=== PATIENT | female | born 1990 | race Caucasian/White ===

== ENCOUNTER 2020-05-28 14:16 | Outpatient (REF) | payer OTHER, SELFPAY | END 2020-05-28 14:17 | disposition home or self-care (01) | LOC: HO.LNP 14:16 | PROVIDERS: Visit Provider Internal Medicine | DX: Z20.828 Contact with and (suspected) exposure to other viral communicable diseases (principal) | CPT/HCPCS: U0003 ==

== ENCOUNTER 2021-06-23 14:50 | Outpatient (REF) | payer OTHER, SELFPAY ==
[2021-06-23 15:32] LABS: Influenza A PCR NEGATIVE (Negative); Influenza B PCR NEGATIVE (Negative); Resp Syncy Virus RNA Qual PCR NEGATIVE (Negative); SARS COV2 PCR INHOUSE POSITIVE (Negative)
== END 2021-06-23 14:51 | disposition home or self-care (01) ==
LOC: HO.LNP 14:50
PROVIDERS: Visit Provider Internal Medicine
DX: Z20.822 Contact with and (suspected) exposure to COVID-19 (principal)
CPT/HCPCS: 0241U

== ENCOUNTER 2022-10-14 15:54 | Outpatient (REF) | payer OTHER, SELFPAY ==
[2022-10-14 16:09] LABS: MANUAL DIFF FLAG NO
[2022-10-14 17:22] LABS: Basophils Absolute Auto 0.1 X10*3/uL (0.0-0.2); Basophils Percent Auto 1.5 % (0-2); Eosinophils Absolute Auto 0.9 X10*3/uL (0.0-0.4); Hematocrit 43.7 % (37.0-47.0); Hemoglobin 14.1 g/dl (12.0-16.0); Imm Gran Abs Auto 0.01 X10*3/uL (0.00-0.03); Imm Gran Pct Auto 0.2 % (0.0-0.4); Lymphocytes Percent Auto 33.7 % (20-40); Mean Corpuscular HGB Conc 32.3 g/dl (31.0-35.0); Mean Corpuscular Hemoglobin 29.1 pg (27.0-33.0); Mean Corpuscular Volume 90.1 fL (80.0-98.0); Mean Platelet Volume 10.4 fL (9.4-12.3); Monocytes Absolute Auto 0.6 X10*3/uL (0.1-1.2); Monocytes Percent Auto 10.7 % (2-11); Neutrophils Absolute Auto 2.2 x10*3/uL (2.0-8.3); Neutrophils Percent Auto 37.9 % (45-73); Platelet Count 303 X10*3/uL (160-400); Red Blood Count 4.85 X10*6/uL (4.20-5.50); Red Cell Distribution Width 13.6 % (11.0-16.0); White Blood Count 5.8 X10*3/uL (4.8-10.8)
[2022-10-14 18:02] LABS: Alanine Aminotransferase 19 U/L (0-31); Albumin Level 4.1 g/dL (3.5-5.0); Alkaline Phosphatase 66 U/L (39-117); Anion Gap 12 (12-20); Aspartate Amino Transferase 19 U/L (5-31); Bilirubin Total 0.6 mg/dL (0.0-1.0); Blood Urea Nitrogen 7 mg/dL (9-16); C Reactive Protein 0.19 mg/dL (< or = 0.50); Calcium 9.3 mg/dL (8.4-10.2); Carbon Dioxide 28 mmol/L (22-29); Chloride 106 mmol/L (96-108); Estimated Glomerular Filt Rate > 60; Glucose Random 88 mg/dL (60-115); Potassium 4.6 mmol/L (3.3-5.1); Sodium 141 mmol/L (135-145); Total Protein 6.7 g/dL (6.5-8.0)
[2022-10-14 18:03] LABS: Erythrocyte Sedimentation Rate 2 MM/HR (0-20)
[2022-10-14 18:11] LABS: D Dimer High Sensitivity < 150 NG/ML
== END 2022-10-14 15:55 | disposition home or self-care (01) ==
LOC: HO.LAB 15:54
PROVIDERS: PCP Internal Medicine; Visit Provider Internal Medicine
DX: R06.02 Shortness of breath (principal); Z86.16 Personal history of COVID-19
CPT/HCPCS: 36415; 80053; 85025; 85379; 85652; 86140

== ENCOUNTER 2024-08-29 17:51 | Emergency (ER) | payer OTHER, SELFPAY ==
--- NOTE | ~2024-08-29 | XR_ITS ---
CLINICAL HISTORY: Cough 1 view chest x-ray Comparison: None Findings: The lungs are clear. Heart size is normal. No acute fracture. IMPRESSION: 1. No acute findings. This document has been electronically signed by: Mio Mcbride MD on 08/29/2024 18:58:44
--- NOTE | 2024-08-29 17:57 | ED_ITS ---
HPI - SOB/Dyspnea General Chief Complaint: Dyspnea Stated Complaint: SOB, CHEST TIGHTNESS Time Seen by Provider: 08/29/24 17:57 Source: patient Mode of arrival: ambulatory Limitations: no limitations History of Present Illness ED Provider: HPI Narrative: Patient's history of mild asthma for last 4 days been having URI symptoms nasal congestion cough getting worse has low-grade fever mucopurulent phlegm EMS gave her DuoNeb treatment feeling much better but still coughing a lot Related Data Previous Rx's ?Medication ?Instructions ?Recorded albuterol sulfate 90 mcg/actuation 2 puff inhalation Q6H PRN 08/29/24 aerosol inhaler shortness of breath or wheezing #8.5 grams codeine 10 mg-guaifenesin 100 mg/5 10 ml PO Q6H PRN cough #237 mL 08/29/24 mL oral liquid prednisone 20 mg tablet 40 mg (2 x 20 mg) PO DAILY #10 tabs 08/29/24 Allergies Allergy/AdvReac Type Severity Reaction Status Date / Time No Known Allergies Allergy Unverified 08/29/24 18:10 Review of Systems 2 Review of Systems: Yes all other systems are reviewed and are negative ON LICENSE OF [facility] Social History Social History Advance Directives: No Advance Directives Information Provided: No Do you have a plan to hurt others: No Plan Physical Exam 2 Vital Signs: Vital Signs: Last Vital Signs Temp 98.9 F 08/29/24 19:49 Pulse 99 08/29/24 19:49 Resp 20 08/29/24 19:49 BP 133/84 08/29/24 19:49 Pulse Ox 93 08/29/24 19:49 O2 Del Method Room Air 08/29/24 19:49 BMI result Body Mass Index 25.0 Appearance: Alert. Oriented X3. No acute distress. Eyes: No pallor or icterus ENT: Pharynx normal. Oral Mucosa moist Neck: Normal inspection. Neck supple. CVS: Normal heart rate and rhythm. Pulses normal. Respiratory: No respiratory distress. Equal air entry bilateral, bilateral wheezing with frequent cough Abdomen: Soft and nontender. Bowel sounds are present, no mass palpable, no CVA tenderness Skin: Skin warm and dry. Normal skin color. Normal skin turgor. Extremities: No lower extremity edema. No calf tenderness Neuro: Oriented X 3. No motor deficit. Medications Administered Discontinued Medications Generic Name Dose Route Start Last Admin Trade Name [place] PRN Reason Stop Dose Admin Albuterol Sulfate 5 mg 08/29/24 17:59 08/29/24 18:25 Albuterol Sulfate (0.083%) 2.5 Mg/3 Ml Vial.Neb INHALE 08/29/24 18:00 5 mg ONCE ONE Administration Guaifenesin/Codeine Phosphate 10 ml 08/29/24 18:00 08/29/24 19:36 Guaifen/Codeine Sf 200/20/10ml 10 Ml Liquid PO 08/29/24 18:01 10 ml ONCE ONE Administration Methylprednisolone Sodium Succinate 125 mg 08/29/24 19:28 08/29/24 19:36 Methylprednisolone Sod Succ 125 Mg/2 Ml Vial IVPUSH 08/29/24 19:29 125 mg ONCE ONE Administration Medical Decision Making Medical Decision Making [facility] Narrative: Patient with influenza A and asthma discharge patient home on supportive early been sick for last 3 days Lab Data [facility] Lab Attestation statement: I reviewed the patient's lab results. 08/29/24 18:22 08/29/24 18:22 Labs: Lab Results 08/29/24 Range/Units 18:22 WBC 3.4 L (4.8-10.8) X10*3/uL RBC 4.37 (4.20-5.50) X10*6/uL Hgb 13.0 (12.0-16.0) g/dl Hct 38.3 (37.0-47.0) % MCV 87.6 (80.0-98.0) fL MCH 29.7 (27.0-33.0) pg MCHC 33.9 (31.0-35.0) g/dl RDW 13.0 (11.0-16.0) % Plt Count 217 D (160-400) X10*3/uL MPV 9.8 (9.4-12.3) fL Immature Gran % (Auto) 0.3 (0.0-0.4) % Neut % (Auto) 61.7 (45-73) % Lymph % (Auto) 20.6 (20-40) % [place] % (Auto) 15.6 H (2-11) % Eos % (Auto) 1.2 (0-4) % Baso % (Auto) 0.6 (0-2) % Lymph # (Auto) 0.7 L (1.2-4.9) X10*3/uL [place] # (Auto) 0.5 (0.1-1.2) X10*3/uL Eos # (Auto) 0.0 (0.0-0.4) X10*3/uL Baso # (Auto) 0.0 (0.0-0.2) X10*3/uL Abs Immat Gran (auto) 0.01 (0.00-0.03) X10*3/uL Absolute Neuts (auto) 2.1 (2.0-8.3) x10*3/uL Absolute Nucleated RBC 0.000 (0.0-0.012) X10*3/uL Nucleated RBC % (auto) 0.0 (0.0-0.2) /100WBC Sodium 141 (135-145) mmol/L Potassium 3.6 (3.3-5.1) mmol/L Chloride 103 (96-108) mmol/L Carbon Dioxide 23 (22-29) mmol/L Anion Gap 19 (12-20) BUN 5 L (9-16) mg/dL Creatinine 0.66 (0.5-1.4) mg/dL Estim Creat Clear Calc 106.0 Estimated GFR > 60 Random Glucose 88 (60-115) mg/dL Calcium 7.9 L D (8.4-10.2) mg/dL Influenza Type A (PCR) POSITIVE A (Negative) Influenza Type B (PCR) NEGATIVE (Negative) RSV RNA Qual (PCR) NEGATIVE (Negative) SARS-CoV-2 RNA (RT-PCR) NEGATIVE (Negative) Discharge Plan Discharge Clinical Impression: Influenza A, Asthma with exacerbation Patient Disposition: Home, Self-Care Instructions: Asthma (ED), Influenza (ED) Additional Instructions: Drink plenty of fluids Cough syrup and prednisone as prescribed Use inhaler every 4 hours as needed Report to the ER if increased shortness of breath Prescriptions: New codeine-guaifenesin 10-100 mg/5 mL liquid 10 ml PO Q6H PRN (Reason: cough) Qty: 237 0RF albuterol sulfate 90 mcg/actuation HFA aerosol inhaler 2 puff inhalation Q6H PRN (Reason: shortness of breath or wheezing) Qty: 8.5 0RF prednisone 20 mg tablet 40 mg PO DAILY Qty: 10 0RF Interventions: ED Discharge Assessment Last Done: 08/29/24 19:49 Discharge Date/Time: 08/29/24 20:08 Print Language: Moldovan
[2024-08-29 18:07] VITALS: BP 117/63; BP 132/58; PULSE 90; PULSE 96; RESP 18; TEMP 37.6; O2SAT 94; O2SAT 95; BMI 25.0
[2024-08-29] MEDS: Albuterol Sulfate (0.083%) 2.5 MG/3 ML VIAL.NEB 5 MG INHALE (18:25)
[2024-08-29 18:26] LABS: MANUAL DIFF FLAG NO
[2024-08-29 18:32] VITALS: PULSE 60; RESP 18; O2SAT 98
[2024-08-29 18:32] LABS: Basophils Percent Auto 0.6 % (0-2); Eosinophils Percent Auto 1.2 % (0-4); Hematocrit 38.3 % (37.0-47.0); Imm Gran Abs Auto 0.01 X10*3/uL (0.00-0.03); Imm Gran Pct Auto 0.3 % (0.0-0.4); Lymphocytes Absolute Auto 0.7 X10*3/uL (1.2-4.9); Lymphocytes Percent Auto 20.6 % (20-40); Mean Corpuscular HGB Conc 33.9 g/dl (31.0-35.0); Mean Corpuscular Hemoglobin 29.7 pg (27.0-33.0); Mean Corpuscular Volume 87.6 fL (80.0-98.0); Mean Platelet Volume 9.8 fL (9.4-12.3); Monocytes Absolute Auto 0.5 X10*3/uL (0.1-1.2); Monocytes Percent Auto 15.6 % (2-11); Neutrophils Absolute Auto 2.1 x10*3/uL (2.0-8.3); Neutrophils Percent Auto 61.7 % (45-73); Platelet Count 217 X10*3/uL (160-400); Red Blood Count 4.37 X10*6/uL (4.20-5.50); White Blood Count 3.4 X10*3/uL (4.8-10.8)
[2024-08-29 18:42] LABS: Anion Gap 19 (12-20); Blood Urea Nitrogen 5 mg/dL (9-16); Calcium 7.9 mg/dL (8.4-10.2); Carbon Dioxide 23 mmol/L (22-29); Chloride 103 mmol/L (96-108); Estimated Glomerular Filt Rate > 60; Glucose Random 88 mg/dL (60-115); Potassium 3.6 mmol/L (3.3-5.1); Sodium 141 mmol/L (135-145)
[2024-08-29 19:05] LABS: Influenza A PCR POSITIVE (Negative); Influenza B PCR NEGATIVE (Negative); Resp Syncy Virus RNA Qual PCR NEGATIVE (Negative); SARS COV2 PCR INHOUSE NEGATIVE (Negative)
[2024-08-29] MEDS: guaiFEN/Codeine SF 200/20/10ML 10 ML LIQUID PO (19:36)
[2024-08-29] MEDS: methylPREDNISolone Sod Succ 125 MG/2 ML VIAL IVPUSH (19:36)
[2024-08-29 19:49] VITALS: BP 133/84; PULSE 99; RESP 20; TEMP 37.2; O2SAT 93
== END 2024-08-29 20:08 | disposition home or self-care (01) ==
PROVIDERS: Emergency Provider Internal Medicine; PCP Internal Medicine
DX: J10.1 Influenza due to other identified influenza virus with other respiratory manifestations (principal); J45.901 Unspecified asthma with (acute) exacerbation; R06.02 Shortness of breath; R07.89 Other chest pain; R05.9 Cough, unspecified; Z03.818 Encounter for observation for suspected exposure to other biological agents ruled out; Z79.899 Other long term (current) drug therapy
CPT/HCPCS: 0241U; 36415; 71045; 80048; 85025; 94640; 96374; 99283; 99284; J2919

== ENCOUNTER → 2024-08-29 17:59 | Outpatient (BNV) | payer OTHER, SELFPAY | PROVIDERS: Emergency Provider Internal Medicine; PCP Internal Medicine; Visit Provider Radiology Diagnostic Radiology | DX: R05.9 Cough, unspecified (principal) | CPT/HCPCS: 71045 ==

== ENCOUNTER 2024-12-06 00:30 | Emergency (ER) | payer OTHER, SELFPAY ==
--- NOTE | 2024-12-06 | ECG_ITS ---
Test Reason : SOB,CP Blood Pressure : */* mmHG Vent. Rate : 81 BPM Atrial Rate : 81 BPM P-R Int : 156 ms QRS Dur : 84 ms QT Int : 388 ms P-R-T Axes : 84 79 68 degrees QTcB Int : 450 ms Normal sinus rhythm Biatrial enlargement Abnormal ECG No previous ECGs available Referred By: Generic ED Physician Electronically Signed By: MALCOM WHEELER MD
--- NOTE | ~2024-12-06 | XR_ITS ---
CLINICAL HISTORY: sob 1 view chest x-ray Comparison: Chest x-ray from 08/29/2024 Findings: No consolidation, pneumothorax, or pleural effusion. Imaged mediastinum and imaged osseous structures are unchanged. IMPRESSION: No consolidation. This document has been electronically signed by: Jewel Hay MD on 12/06/2024 02:10:47
[2024-12-06 00:48] VITALS: BP 128/74; PULSE 85; RESP 22; TEMP 36.8; O2SAT 92; BMI 25.3
[2024-12-06 00:49] LABS: Basophils Absolute Auto 0.1 X10*3/uL (0.0-0.2); Basophils Percent Auto 1.5 % (0-2); Eosinophils Absolute Auto 0.8 X10*3/uL (0.0-0.4); Eosinophils Percent Auto 9.5 % (0-4); Imm Gran Abs Auto 0.02 X10*3/uL (0.00-0.03); Imm Gran Pct Auto 0.2 % (0.0-0.4); Lymphocytes Absolute Auto 3.6 X10*3/uL (1.2-4.9); Lymphocytes Percent Auto 43.4 % (20-40); MANUAL DIFF FLAG NO; Mean Corpuscular HGB Conc 33.3 g/dl (31.0-35.0); Mean Corpuscular Hemoglobin 29.7 pg (27.0-33.0); Mean Platelet Volume 9.9 fL (9.4-12.3); Monocytes Absolute Auto 0.7 X10*3/uL (0.1-1.2); Monocytes Percent Auto 8.6 % (2-11); Neutrophils Percent Auto 36.8 % (45-73); Platelet Count 272 X10*3/uL (160-400); Red Blood Count 4.72 X10*6/uL (4.20-5.50); Red Cell Distribution Width 13.3 % (11.0-16.0); White Blood Count 8.2 X10*3/uL (4.8-10.8)
[2024-12-06 00:58] VITALS: O2SAT 95
[2024-12-06 01:09] LABS: Troponin-I High Sensitivity < 2.7 ng/L (<3.5-17.0)
[2024-12-06 01:11] LABS: Alanine Aminotransferase 17 U/L (0-31); Albumin Level 4.1 g/dL (3.5-5.0); Alkaline Phosphatase 69 U/L (39-117); Anion Gap 12 (12-20); Aspartate Amino Transferase 20 U/L (5-31); Bilirubin Total 0.2 mg/dL (0.0-1.0); Blood Urea Nitrogen 17 mg/dL (9-16); Calcium 8.9 mg/dL (8.4-10.2); Carbon Dioxide 24 mmol/L (22-29); Chloride 107 mmol/L (96-108); Creatinine Clr Calc Pharmacy 105.3; Estimated Glomerular Filt Rate > 60; Glucose Random 82 mg/dL (60-115); Potassium 4.2 mmol/L (3.3-5.1); Sodium 139 mmol/L (135-145); Total Protein 6.8 g/dL (6.5-8.0)
[2024-12-06 01:14] VITALS: PULSE 79; RESP 18; O2SAT 95
[2024-12-06] MEDS: Albuterol/Iprat 2.5/0.5MG 3 ML AMPUL.NEB INHALE (01:19)
[2024-12-06 02:25] VITALS: BP 96/58; PULSE 74; RESP 16; TEMP 37.1; O2SAT 96
--- NOTE | 2024-12-06 03:22 | ED_ITS ---
HPI - Chest Pain General Chief Complaint: Chest Pain Stated Complaint: SOB, chest pain Time Seen by Provider: 12/06/24 03:06 Source: patient Mode of arrival: ambulatory Limitations: no limitations History of Present Illness ED Provider: DR. Rothman HPI narrative: 34-year-old female history of mild asthma, for the past 2-3 days patient been having tightness of the chest with wheezing patient ran out of bronchodilator treatment at home. Patient admit to smoking cigarettes and marijuana. No sick contacts, no recent travel, no lower extremity swelling or tenderness. Related Data Previous Rx's ?Medication ?Instructions ?Recorded albuterol sulfate 90 mcg/actuation 2 puff inhalation Q6H PRN 08/29/24 aerosol inhaler shortness of breath or wheezing #8.5 grams codeine 10 mg-guaifenesin 100 mg/5 10 ml PO Q6H PRN cough #237 mL 08/29/24 mL oral liquid prednisone 20 mg tablet 40 mg (2 x 20 mg) PO DAILY #10 tabs 08/29/24 albuterol sulfate 2.5 mg/3 mL 2.5 mg (3 mL) inhalation Q4-6H PRN 12/06/24 (0.083 %) solution for nebulization shortness of breath or wheezing #90 mL albuterol sulfate 90 mcg/actuation 2 inh inhalation Q6H PRN shortness 12/06/24 breath activated powder inhaler of breath or wheezing #1 ea prednisone 20 mg tablet 20 mg PO BID #10 tabs 12/06/24 Allergies Allergy/AdvReac Type Severity Reaction Status Date / Time No Known Allergies Allergy Verified 12/06/24 00:50 Review of Systems 2 Review of Systems: All other systems are reviewed and are negative Constitutional: Reports as per HPI and Reports no additional constitutional complaints Eyes: Reports as per HPI and Reports no additional eye complaints Reports system reviewed and no additional complaints, except as documented Cardiovascular: Reports as per HPI and Reports no additional cardiovascular complaints Respiratory: Reports as per HPI and Reports no additional respiratory complaints Gastrointestinal: Reports as per HPI and Reports no additional gastrointestinal complaints Genitourinary: Reports no additional female genitourinary complaints Musculoskeletal: Reports no additional musculoskeletal complaints Skin/Breast: Reports system reviewed and no additional complaints, except as docu Psychiatric: Reports no additional psychiatric complaints Endocrine: Reports no additional endocrine complaints Hematologic/Lymphatic: Reports no additional hematologic/lymphatic complaints Allergic/Immunologic: Reports no additional allergic/immunologic complaints Reports system reviewed and no additional complaints, except as documented and Reports Abnormal speech present [facility] Social History Social History Smoked in Last 30 Days: Yes Use of substances other than those prescribed or required for medical reasons: No Advance Directives: No Advance Directives Information Provided: Yes Do you have a plan to hurt others: No Plan Patient : No Physical Exam 2 Vital Signs: Vital Signs: Last Vital Signs Temp 98.8 F 12/06/24 02:25 Pulse 74 12/06/24 02:25 Resp 16 12/06/24 02:25 BP 96/58 L 12/06/24 02:25 Pulse Ox 96 12/06/24 02:25 O2 Del Method Room Air 12/06/24 02:25 BMI result Body Mass Index 25.3 Vital signs have been reviewed and appear to be correct. Blood pressure elevated. Heart rate normal. Respiratory rate normal. Temperature normal. Oxygen saturation normal. Appearance: Alert. Oriented X3. No acute distress. Head: Normal external exam. Normocephalic. Atraumatic. No Shin signs noted. No raccoon eyes noted Eyes: PERRLA. EOMI. Conjunctiva and sclera normal. Eyelids normal. ENT: TM's Normal. Pharynx normal. Uvula midline. Moist mucous membranes. No trismus noted. No drooling noted. No muffled voice noted. Neck: Normal inspection. Neck supple. FROM. No adenopathy. Thyroid Normal. No meningeal signs. No neck mass noted. CVS: Normal heart rate and rhythm. Heart sound normal. No murmurs noted. Pulses normal throughout. Respiratory: No respiratory distress. Painless inspiration. Breath sounds normal. Diffuse mild expiratory wheezing with prolonged expiration, Chest nontender. No accessory muscle usage noted or decreased air movement noted. Abdomen: Soft and nontender. Bowel sounds normal in all 4 quadrants. No distention noted. No organomegaly noted. No visible injury noted. Back: No CVA tenderness. Full range of motion noted. Skin: Skin warm and dry. Normal skin color. Normal skin turgor. No rashes/lesions/lacerations noted. Extremities: No lower extremity edema. Extremities exhibit normal range of motion. Extremities nontender. Neuro: Oriented X 3. Cranial nerve exam: II-XII are grossly intact No motor deficit. No sensory deficit. Reflexes normal. Course Reevaluation(s) Reevaluation #1: 34-year-old female with acute asthma exacerbation will start the patient on 5 days' course of prednisone, will prescribe bronchodilator. Time: 03:26 Medications Administered Discontinued Medications Generic Name Dose Route Start Last Admin Trade Name Freq PRN Reason Stop Dose Admin Albuterol/Ipratropium 3 ml 12/06/24 01:13 12/06/24 01:19 Albuterol/Iprat 2.5/0.5mg 3 Ml Ampul.Neb INHALE 12/06/24 01:14 3 ml ONCE ONE Administration Medical Decision Making Differential Diagnosis Differential Diagnoses: The differential diagnosis associated with the presentation includes (ACS, pneumonia, pneumothorax, pleural effusion, bronchitis, acute asthma exacerbation.) Admission/Observation Consideration of admission/observation: Escalation of care including admission/observation considered Lab Data MDM Lab Attestation statement: I reviewed the patient's lab results. 12/06/24 00:43 12/06/24 00:43 Labs: Lab Results 12/06/24 Range/Units 00:43 WBC 8.2 (4.8-10.8) X10*3/uL RBC 4.72 (4.20-5.50) X10*6/uL Hgb 14.0 (12.0-16.0) g/dl Hct 42.0 (37.0-47.0) % MCV 89.0 (80.0-98.0) fL MCH 29.7 (27.0-33.0) pg MCHC 33.3 (31.0-35.0) g/dl RDW 13.3 (11.0-16.0) % Plt Count 272 D (160-400) X10*3/uL MPV 9.9 (9.4-12.3) fL Immature Gran % (Auto) 0.2 (0.0-0.4) % Neut % (Auto) 36.8 L (45-73) % Lymph % (Auto) 43.4 H (20-40) % [place] % (Auto) 8.6 (2-11) % Eos % (Auto) 9.5 H (0-4) % Baso % (Auto) 1.5 (0-2) % Lymph # (Auto) 3.6 (1.2-4.9) X10*3/uL [place] # (Auto) 0.7 (0.1-1.2) X10*3/uL Eos # (Auto) 0.8 H (0.0-0.4) X10*3/uL Baso # (Auto) 0.1 (0.0-0.2) X10*3/uL Abs Immat Gran (auto) 0.02 (0.00-0.03) X10*3/uL Absolute Neuts (auto) 3.0 (2.0-8.3) x10*3/uL Absolute Nucleated RBC 0.000 (0.0-0.012) X10*3/uL Nucleated RBC % (auto) 0.0 (0.0-0.2) /100WBC Sodium 139 (135-145) mmol/L Potassium 4.2 (3.3-5.1) mmol/L Chloride 107 (96-108) mmol/L Carbon Dioxide 24 (22-29) mmol/L Anion Gap 12 (12-20) BUN 17 H (9-16) mg/dL Creatinine 0.72 (0.5-1.4) mg/dL Estim Creat Clear Calc 105.3 Estimated GFR > 60 Random Glucose 82 (60-115) mg/dL Calcium 8.9 D (8.4-10.2) mg/dL Total Bilirubin 0.2 (0.0-1.0) mg/dL AST 20 (5-31) U/L ALT 17 (0-31) U/L Alkaline Phosphatase 69 (39-117) U/L Troponin I High Sens < 2.7 (<3.5-17.0) ng/L Total Protein 6.8 (6.5-8.0) g/dL Albumin 4.1 (3.5-5.0) g/dL Independent Interpretation I performed an independent interpretation of an: Plain X-Ray (Chest: No acute intrathoracic pathology.) Radiology Impression Discussion of test interpretation with radiology: I have reviewed the radiologist's reading. Discharge Plan Discharge Clinical Impression: Acute asthma exacerbation Patient Disposition: Home, Self-Care Instructions: Asthma (ED) Prescriptions: New prednisone 20 mg tablet 20 mg PO BID Qty: 10 0RF albuterol sulfate 2.5 mg /3 mL (0.083 %) solution for nebulization 2.5 mg inhalation Q4-6H PRN (Reason: shortness of breath or wheezing) Qty: 90 0RF albuterol sulfate 90 mcg/actuation aerosol powdr breath activated 2 inh inhalation Q6H PRN (Reason: shortness of breath or wheezing) Qty: 1 0RF No Action codeine-guaifenesin 10-100 mg/5 mL liquid 10 ml PO Q6H PRN (Reason: cough) Qty: 237 0RF albuterol sulfate 90 mcg/actuation HFA aerosol inhaler 2 puff inhalation Q6H PRN (Reason: shortness of breath or wheezing) Qty: 8.5 0RF prednisone 20 mg tablet 40 mg PO DAILY Qty: 10 0RF Referrals: Edmundo Burno MD [Primary Care Provider] - Print Language: Cymraes
[2024-12-06] MEDS: predniSONE 20 MG TABLET 40 MG PO (04:09)
[2024-12-06 04:11] VITALS: BP 96/58; PULSE 74; RESP 16; TEMP 37.1; O2SAT 96
== END 2024-12-06 04:12 | disposition home or self-care (01) ==
PROVIDERS: Emergency Provider Emergency Medicine; PCP Internal Medicine
DX: J45.901 Unspecified asthma with (acute) exacerbation (principal); R06.02 Shortness of breath; R07.89 Other chest pain; Z79.899 Other long term (current) drug therapy
CPT/HCPCS: 36415; 71045; 80053; 84484; 85025; 93005; 94640; 99284

== ENCOUNTER → 2024-12-06 00:34 | Outpatient (BNV) | payer OTHER, SELFPAY | PROVIDERS: Emergency Provider Emergency Medicine; PCP Internal Medicine; Visit Provider Internal Medicine Cardiovascular Disease | DX: I51.7 Cardiomegaly (principal) | CPT/HCPCS: 93010 ==

== ENCOUNTER → 2024-12-06 00:45 | Outpatient (BNV) | payer OTHER, SELFPAY | PROVIDERS: PCP Internal Medicine; Visit Provider Radiology Neuroradiology | DX: R06.02 Shortness of breath (principal) | CPT/HCPCS: 71045 ==

== ENCOUNTER 2025-05-07 17:48 | Inpatient (IN) | payer OTHER, SELFPAY ==
--- NOTE | ~2025-05-07 | CT_ITS ---
CLINICAL HISTORY: hypoxia CT angiography chest with contrast. 3D Postprocessing. Comparison: None provided Findings: The heart size is normal. RV/LV ratio is normal. Unremarkable thoracic aorta and great vessels. No aneurysm. No pulmonary artery filling defects. Diffuse esophageal mural thickening, nonspecific. The lungs are clear. Left-sided hypodense renal cysts. The bones are intact. IMPRESSION: No evidence of PE. This document has been electronically signed by: Lev Pugh MD on 05/07/2025 23:01:39
--- NOTE | ~2025-05-07 | XR_ITS ---
CLINICAL HISTORY: SOB 1 view chest x-ray Comparison: 12/06/2024 Findings: No consolidation or effusion. Normal size heart. No acute fracture. IMPRESSION: 1. No acute findings. This document has been electronically signed by: Lev Pugh MD on 05/07/2025 19:07:43
--- NOTE | 2025-05-07 17:49 | ECG_ITS ---
Test Reason : SOB Blood Pressure : */* mmHG Vent. Rate : 112 BPM Atrial Rate : 112 BPM P-R Int : 146 ms QRS Dur : 70 ms QT Int : 384 ms P-R-T Axes : 81 85 90 degrees QTcB Int : 524 ms Poor data quality, interpretation may be adversely affected AGE [employer] GENDER SPECIFIC ECG ANALYSIS Sinus tachycardia Nonspecific ST changes When compared to the previous EKG of Nonspecific ST changes present Referred By: Mia Vernon Electronically Signed By: Maurice Gordon
[2025-05-07] MEDS: Albuterol Sulfate 5 MG, Albuterol/Iprat 2.5/0.5MG 3 ML 3 ML INHALE (18:02)
[2025-05-07 18:03] VITALS: PULSE 100; RESP 26; O2SAT 94
[2025-05-07 18:04] VITALS: BP 127/63; BP 140/86; PULSE 105; PULSE 113; RESP 18; TEMP 37.3; O2SAT 89; O2SAT 95; BMI 26.6
[2025-05-07 18:27] LABS: MANUAL DIFF FLAG NO
[2025-05-07 18:31] LABS: Venous Blood Gas Refer to POC result
[2025-05-07 18:32] LABS: Hematocrit 40.6 % (37.0-47.0); Hemoglobin 13.5 g/dl (12.0-16.0); Imm Gran Abs Auto 0.02 X10*3/uL (0.00-0.03); Imm Gran Pct Auto 0.2 % (0.0-0.4); Lymphocytes Absolute Auto 2.0 X10*3/uL (1.2-4.9); Mean Corpuscular HGB Conc 33.3 g/dl (31.0-35.0); Mean Corpuscular Hemoglobin 29.7 pg (27.0-33.0); Mean Corpuscular Volume 89.4 fL (80.0-98.0); NRBC Abs Auto 0.000 X10*3/uL (0.0-0.012); NRBC Pct Auto 0.0 /100WBC (0.0-0.2); Platelet Count 232 X10*3/uL (160-400); Red Blood Count 4.54 X10*6/uL (4.20-5.50); White Blood Count 9.4 X10*3/uL (4.8-10.8)
[2025-05-07 18:34] LABS: VBG HCO3 27 mmol/L (22-26); VBG O2 % Saturation 57.0 %
[2025-05-07 18:38] LABS: INTERNATIONAL NORM RATIO 1.0 (0.9-1.1); Prothrombin Time 11.0 SEC (10.9-12.4)
--- OUTSIDE RECORDS SUMMARY | 2025-05-07 18:39 | XMS_ITS | Clinical Summary ---
Author Organization [facility] [address] [facility] Address [address] [place] [address] Phone Care Team Providers Care Home Health Scheduler Name Role Phone Mary Jane Salinas MD Primary Care Provider [phone] Allergies Active Allergy Reactions Criticality Noted Date Comments Bee Venom Protein (Honey Bee) Swelling High 2019 Medications aspirin (Vazalore) 81 mg capsule Take 1 capsule by mouth daily. 07/16/2021 Active ferrous gluconate (FERGON) 324 mg (38 mg iron) tablet Take 1 tablet by mouth daily. 09/03/2021 Active PNV,calcium 15-nhik-xqrno acid ( Plus, calcium carb,) 27 mg iron- 1 mg tablet Take 1 tablet by mouth daily. 02/12/2021 Active norethindrone (SMITH,ANUJA,Tyesha TAO,MICRONOR ) 0.35 mg tablet Take 1 tablet (0.35 mg total) by mouth 1 (one) time each day. 84 tablet 4 09/19/2024 Active Active Problems Problem Noted Date Diagnosed Date Anemia in 09/03/2021 Overview (09/15/2024): 09/03/2021- iron supplement sent Elevated glucose tolerance test 09/03/2021 Overview (09/15/2024): 09/03/2021- elevated 1hr, 3hr GTT WNL Positive GBS test 08/25/2021 Overview (09/15/2024): Tx in labor Pneumonia 06/11/2021 Overview (09/15/2024): 06/09/2021- according to pt was [place] [facility] [place] and treated for Pneumonia, discharged with inhalers. Sent back to ED via ambulance today due to SOB and sx exacerbation. She should follow up with physician after discharge Records requested 08/19/2021- Per Adrianne YATES, pt reported Pneumonia and lung blood clot during hospital stay- records requested 08/22/2021- Records reviewed, pt was Positve for COVID, severely symptomatic and had Pneumonia- received Lovenox for DVT PROPHILAXIS (No blood clots) Obesity in 03/12/2021 Overview (09/15/2024): HgbA1C at initial labs- 5.3 One hour GTT in first trimester Repeat GTT 24-28 weeks if early is normal Level 2 Survey (at [facility] for BMI >40) Refer to nutrition for BMI >40 Growth US at 32 and 36 weeks for for BMI >40 Weekly NST at 32 weeks for BMI >45 Screen for TIIT (using tool) and refer for sleep study if positive Anesthesia consult for pre- BMI >45 or >50 lb weight gain Transfer to [facility] for pre- BMI >50 DVT prophylaxis- Lovenox if CS and BMI >35 Low-lying placenta in first trimester 03/04/2021 Overview (09/15/2024): RESOLVED 03/03/21 ultrasound: Low position of the posterior placenta which on today's study covers internal os. Will reassess at [facility]- Posterior Placenta at [facility] and no longer low lying HSV-1 (herpes simplex virus 1) infection 020 Overview (09/15/2024): 07/05/2009 Positive HSV 1 IgG - history oral cold sores Never had vaginal outbreak ASCUS with positive high risk HPV cervical 10/20 Overview (09/15/2024): Last pap 2019 negative Immunizations Immunization Administration Dates Next Due HPV, Quadrivalent 09/12/2010,05/04/2007 Influenza trivalent, 0.5mL, preservative free (Fluarix; FluLaval; Fluzone) ages 6mo and older (Afluria) 3 years and older 07/05/2009 Surgical History Surgery Date Site/Laterality Comments APPENDECTOMY PROCEDURE: SD APPENDECTOMY; COMMENT: age 14 SALPINGOOPHORECTOMY Bilateral PROCEDURE: SD LAPAROSCOPY W/RMVL ADNEXAL STRUCTURES; COMMENT: cyst removed LITHOTRIPSY PROCEDURE: HISTORICAL LITHOTRIPSY Medical History Medical History Date Comments Other specified personal his tory presenting hazards to health(V15.89) 2004 DX:Other specified personal history presenting hazards to health(V15.89); COMMENT: Pap ASCUS with HPV History of kidney stones DX:Hist ory of kidney stones Migraines DX:Migraines; CO MMENT: with aura Pneumonia 06/11/2021 06/09/2021- acco rding to pt was [place] [facility] [place] and treated for Pneumonia, discharged with inhalers.Sent back to ED via ambulance today due to SOB and sx exacerbation. She should follow up with physician after dischargeRecords requested08/19/2021- Per Adrianne YATES, pt reported Pneumonia and lung blood clot during hospital stay- records requested 08/22/2021- Records reviewed, p* Family History Medical History Relation Name Comments No Known Problems Brother No Known Problems Daughter 1 Hailee Oliveira No Known Problems Daughter 2 John Byrd No Known Problems Daughter 3 Dieudonne Byrd No Known Problems Father No Known Problems Maternal Grandfather Breast cancer Maternal Grandmother Diabetes Maternal Grandmother type 2 (weight related) Hypertension Maternal Grandmother Other: Rectal cancer Maternal Grandmother Stomach cancer Maternal Grandmother Asthma Mother Stroke Mother Breast cancer Mother's side MGGM ?Dx in 5 0's No Known Problems Paternal Grandfather No Known Problems Paternal Grandmother No Known Problems Sister Cervical cancer Neg Hx Colon cancer Neg Hx Ovarian cancer Neg Hx Pancreatic cancer Neg Hx Prostate cancer Neg Hx Uterine cancer Neg Hx Relation Name Status Comments Brother Alive Daughter 1 Hailee Oliveira Alive 05/24/20 08 Daughter 2 John Byrd Alive 014 Daughter 3 Dieudonne Byrd Alive 0 Father Alive Maternal Grandfather Maternal Grandmother Mother Alive Mother's side (Age 85) MGGM Paternal Grandfather Paternal Grandmother Sister Alive Social History Tobacco Use Types Packs/Day Years Used Date Smoking Tobacco: Some Days Cigarettes Smokeless Tobacco: Never Alcohol Use Standard Drinks/Week Comments Yes 0 (1 standard drink = 0.6 oz pur e alcohol) Comments No Sex and Gender Information Value Date Recorded Sex Assigned at Not on file Legal Sex Female 4:21 AM EST Gender Identity Not on file Sexual Orientation Not on file Obstetrics History * This document contains information received from the source organization and may not represent a complete record from that organization. Para Term AB IAB SAB Ectopic Multiple Livin g Live Births 6 4 4 0 0 0 4 4 Date Outcome GA Total Labor Labor/2nd/3rd Weight Sex Type Anes PTL Alycia A1 A5 Name Clin 4 2007 Term 42w 0d 17h 30m 17h 00m/ 3232 g (114 oz) F Vag-S pont Epidur al N Livin g Cadence Putnam on Complications:None Delivery Location:[facility] Comments:went into lab or, [facility]OM 2013 Term 42w 2d 16h 01m 3710 g (130.9 oz) F Vag-S pont Epidur al N Livin g 8 9 Fuentes castillo Complications:None Delivery Location:[facility] Comments: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 2019 Term 41w 1d 7h 45m 7h 00m/0h 41m/0h 04m 3460 g (122.1 oz) F Vag-S pont Epidur al Livin g 8 9 Simon Sifuentes CNM Complications:None Delivery Location:[facility] Comments:IOL for post dates 2021 Term 39w 2d M Vag-S pont Livin g Last Filed Vital Signs Vital Sign Reading Time Taken Comments Blood Pressure 107/68 09/19/2024 2:37 PM EST Pulse 59 09/19/2024 2:37 PM EST Temperature - - Respiratory Rate - - Oxygen Saturation - - Inhaled Oxygen Concentration - - Weight 67.1 kg (148 lb) 09/19/2024 2:37 PM EST Height 165.1 cm (5' 5 ) 09/18/2022 11:38 AM EST Body Mass Index 24.63 09/18/2022 11:38 AM EST Plan of Treatment Health Maintenance Due Date Last Done Comments DTaP,Tdap,and Td Vaccines (1 - Tdap) 2007 Hepatitis B Vaccines (1 of 3 - 19+ 3-dose series) 2007 Pneumococcal Vaccine: Pediatrics (0 to 5 Years) and At-Risk Patients (6 to 49 Years) (1 of 2 - PCV) 2007 HPV Vaccines (3 - 3-dose series) 12/05/2010 09/12/2010, 05/04/2007 Cholesterol Screening (Lipid Panel) 06/28/2022 07/05/2009 Social Influencers of Health Screening 06/28/2022 Depression Screening 07/26/2024 COVID-19 Vaccine (1 - 2023-2 5 season) 2025 Influenza Vaccine (#1) 2025 07/05/2009 Cervical Cancer Screening: HPV 04/28/2026 04/28/2021 RSV Immunization Adult Patients (1 - 1-dose 75+ series) 2063 HIV Screening Completed 03/11/2021 Hepatitis C Screening Completed 03/11/2021 HIB Vaccines Aged Out No longer eligi ble based on patient's age to complete this topic Hepatitis A Vaccines Aged Out No long er eligible based on patient's age to complete this topic IPV Vaccines Aged Out No longer eligi ble based on patient's age to complete this topic MMR Vaccines Aged Out No longer eligi ble based on patient's age to complete this topic Meningococcal ACWY Vaccine Aged Out N o longer eligible based on patient's age to complete this topic Meningococcal B Vaccine Aged Out No l onger eligible based on patient's age to complete this topic RSV Immunization Patients Under 20 months Aged Out No longer eligible b ased on patient's age to complete this topic Varicella Vaccines Aged Out No longer eligible based on patient's age to complete this topic Procedures Procedure Name Priority Date/Time Associated Diagnosis Comments HPV Routine 04/28/2021 HEPATITIS C SCREENING Routine 03/11/2021 HIV SCREENING Routine 03/11/2021 LIPID PANEL Routine 07/05/2009 from Last 3 Months or Most Recently Relevant to Health Maintenance Results * Cervical Cancer Screening: HPV (04/28/2021) Pathologist [facility] Cervical Cancer Screening: HPV Negative, Abstracted [facility] Provider HEALTH MAINTENANCE Final Result * HIV Screening (03/11/2021) [facility] HIV Screening Abstracted [facility] Provider HEALTH MAINTENANCE Final Result * Hepatitis C Screening (03/11/2021) [facility] Hepatitis C Screening Abstracted [facility] Provider HEALTH MAINTENANCE Final Result * Lipid panel (07/05/2009) [facility] LDL/HDL Ratio 2 0 - 4 Triglycerides 44 0 - 150 mg/dL Cholesterol 153 0 - 200 mg/dL HDL 74 >=40 mg/dL LDL Cholesterol 71 0 - 100 mg/dL Blood Venous blood specimen / Unknown [facility] Provider LAB BLOOD ORDERABLES Mone l Result from Last 3 Months or Most Recently Relevant to Health Maintenance [place] [phone] [facility] PUBLIC PLANS YOBANY HOUGH [id number] Care Teams Home Health Scheduler Relationship Specialty Start Date End Date Mary Jane Salinas MD [address] [place] [id number] PCP - General 07/07/23
[2025-05-07 18:48] LABS: Alanine Aminotransferase 15 U/L (0-31); Albumin Level 4.4 g/dL (3.5-5.0); Alkaline Phosphatase 67 U/L (39-117); Anion Gap 14 (12-20); Aspartate Amino Transferase 21 U/L (5-31); Blood Urea Nitrogen 9 mg/dL (9-16); Calcium 8.5 mg/dL (8.4-10.2); Carbon Dioxide 26 mmol/L (22-29); Chloride 107 mmol/L (96-108); Creatinine Clr Calc Pharmacy 117.6; Estimated Glomerular Filt Rate > 60; Magnesium 1.8 mg/dL (1.6-2.6); Potassium 3.0 mmol/L (3.3-5.1); Sodium 144 mmol/L (135-145); Total Protein 6.8 g/dL (6.5-8.0)
[2025-05-07 19:03] LABS: Troponin-I High Sensitivity < 2.7 ng/L (<3.5-17.0)
[2025-05-07] MEDS: Potassium Chloride ER 20 MEQ TAB.ER.PRT 40 MEQ PO (19:16)
--- NOTE | 2025-05-07 19:26 | ED.GENADULT ---
HPI - General Adult General Chief complaint: Dyspnea Stated complaint: SOB Time Seen by Provider: 05/07/25 18:22 Source: patient Mode of arrival: EMS Limitations: no limitations History of Present Illness ED Provider: Debby HPI narrative: 34 year old female with a hx of asthma and PE not currently anticoagulated presents via EMS with SOB and chest tightness. She reports a fever, sore throat, and runny nose yesterday. She then woke up at 2:00 AM this morning with difficulty breathing and coughing up of thick clear phlegm. She also reports significant chest tightness and pain with deep inhalation and exhalation. She has difficulty laying flat due to trouble breathing. She used her albuterol inhaler at home with no improvement. She received one nebulizer treatment en route to the hospital and another one since being here with some improvement in her symptoms though reports ongoing chest tightness and shortness of breath. She reports her symptoms are similar to prior asthma exacerbations but feels worse. She denies chest pain other than with deep breathing, swelling of the extremities, nausea/vomiting. The patient reports that her PE symptoms were somewhat different as she felt like she was inhaling shards of glass. This was about 3 years ago and she reports that she was admitted [facility] for about 3 weeks but was on anticoagulation but is not currently being treated. She discontinued her contraception at the time Onset (ago): day(s) Exacerbating factors: other (laying flat) Treatments prior to arrival: other (nebulizer treatment) Related Data Previous Rx's ?Medication ?Instructions ?Recorded albuterol sulfate 90 mcg/actuation 2 puff inhalation Q6H PRN 08/29/24 aerosol inhaler shortness of breath or wheezing #8.5 grams codeine 10 mg-guaifenesin 100 mg/5 10 ml PO Q6H PRN cough #237 mL 08/29/24 mL oral liquid prednisone 20 mg tablet 40 mg (2 x 20 mg) PO DAILY #10 tabs 08/29/24 albuterol sulfate 2.5 mg/3 mL 2.5 mg (3 mL) inhalation Q4-6H PRN 12/06/24 (0.083 %) solution for nebulization shortness of breath or wheezing #90 mL albuterol sulfate 90 mcg/actuation 2 inh inhalation Q6H PRN shortness 05/14/25 breath activated powder inhaler of breath or wheezing #1 ea prednisone 20 mg tablet 20 mg PO BID #10 tabs 12/06/24 Allergies Allergy/AdvReac Type Severity Reaction Status Date / Time No Known Allergies Allergy Verified 05/07/25 18:07 Review of Systems Constitutional: Constitutional: Reports as per HPI, Denies chills, Denies headache(s) and Denies weakness Eyes: Eyes: Reports no additional eye complaints ENT: Denies dizziness, Denies headache(s) and Reports sore throat Cardiovascular: Cardiovascular: Reports no additional cardiovascular complaints, Denies leg edema, Denies lightheadedness, Reports dyspnea, Reports dyspnea on exertion and Reports orthopnea Respiratory: Respiratory: Reports cough, Reports pain on inspiration, Reports dyspnea, Reports dyspnea on exertion and Reports wheezing Gastrointestinal: Gastrointestinal: Denies constipation, Denies dyspepsia, Denies diarrhea, Denies nausea, Reports vomiting and Denies hematemesis Genitourinary: Genitourinary: Reports no additional female genitourinary complaints Musculoskeletal: Musculoskeletal: Reports no additional musculoskeletal complaints Integumentary/Breasts: Skin/Breast: Reports system reviewed and no additional complaints, except as docu Neurologic: Denies dizziness, Denies headache(s) and Denies weakness Psychiatric: Psychiatric: Reports no additional psychiatric complaints Endocrine: Endocrine: Reports no additional endocrine complaints Hematologic/Lymphatic: Hematologic/Lymphatic: Reports no additional hematologic/lymphatic complaints Allergic/Immunologic: Allergic/Immunologic: Reports wheezing PMFSH Social History Social History Advance Directives: No Advance Directives Information Provided: No Physical Exam ED Vital Signs: Vital Signs - 24 hr 05/07/25 18:03 05/07/25 18:04 05/07/25 22:07 Temperature 99.2 F 98 F Pulse Rate 100 113 H 81 Respiratory Rate 26 H 18 20 Blood Pressure 127/63 117/58 L Pulse Oximetry 95 96 Oxygen Delivery Method Nasal Cannula Nasal Cannula Oxygen Flow Rate 2 05/07/25 22:35 Temperature Pulse Rate Respiratory Rate Blood Pressure Pulse Oximetry 84 L Oxygen Delivery Method Room Air Oxygen Flow Rate BMI result Body Mass Index 26.6 Pulse rate is elevated at 113 beats per minute. Temperature is noted to be 99.2F. Const General: cooperative, healthy appearing, alert, awake, Physically active and other (Able to speak in full sentences though with mild distress/SOB.) Nutritional Appearance: well nourished Orientation/consciousness: patient oriented x3 Limitations: no limitations HENMT Head: Yes normocephalic and Yes atraumatic Face and sinus: Yes face symmetric Mouth: Normal oral and palatal mucosa present and tongue normal Teeth and gingiva: dentition normal Throat: Yes posterior oropharynx normal ( without erythema, tonsillar exudates or edema), No peritonsillar mass, No uvula laterally displaced and No uvular edema Neck Neck: Yes normal visual inspection, Yes full ROM, No no meningeal signs, Yes supple, No lymphadenopathy, No tracheal deviation and Yes no JVD Chest Chest palpation & inspection: normal inspection of the chest, normal palpation of entire chest wall and no crepitus Resp Other: The patient was not truly tripoding, but was not comfortable lying flat and was seated upright. Effort & Inspection: able to speak in complete sentences, labored (able to speak in full sentences with mildly labored breathing. ) and no use of accessory muscles Auscultation: wheezes expiratory wheezes, inspiratory wheezes and throughout Cardio Rate: tachycardic Rhythm: regular rhythm Peripheral pulses: Peripheral pulses 2+ throughout Skin General skin exam: no rashes or lesions noted Neuro General: patient oriented x3 and No no meningeal signs Course Reevaluation(s) Reevaluation #1: The patient was hypoxic as low as 84% on room air. She is placed on oxygen and was given additional DuoNeb, as her CT angiography was negative for PE or pneumonia. Ordered an expanded respiratory panel we will admit her to the hospitalist. There is no evidence of bacterial infection, we will hold antibiotics. Time: 23:25 Medications Administered Discontinued Medications Generic Name Dose Route Start Last Admin Trade Name Freq PRN Reason Stop Dose Admin Albuterol Sulfate 5 mg/ 0 mg 05/07/25 17:58 05/07/25 18:02 Albuterol/Ipratropium 3 ml INHALE 05/07/25 17:59 1 each ONCE ONE Administration Magnesium Sulfate/Dextrose 1 gm in 100 mls @ 300 mls/hr 05/07/25 19:07 05/07/25 20:27 Magnesium Sulfate/D5w IV 05/07/25 19:26 Infused ONCE ONE Infusion Iohexol 65 ml 05/07/25 22:25 05/07/25 22:25 Iohexol 350 Mg/Ml 100 Ml Infus..Btl IV 05/07/25 22:26 65 ml ONCE ONE Administration Methylprednisolone Sodium Succinate 125 mg 05/07/25 19:07 05/07/25 19:16 Methylprednisolone Sod Succ 125 Mg/2 Ml Vial IVPUSH 05/07/25 19:08 125 mg ONCE ONE Administration Potassium Chloride 40 meq 05/07/25 19:07 05/07/25 19:16 Potassium Chloride Er 20 Meq Tab.Er.Prt PO 05/07/25 19:08 40 meq ONCE ONE Administration Medical Decision Making Medical Decision Making [facility] Narrative: The patient is a 34 year old female with a history of asthma and PE, who presents with fever, runny nose, and sore throat yesterday and chest tightness, shortness of breath, cough with clear sputum, and pleuritic chest pain with deep inspiration/expiration for one day likely c/w an acute asthma exacerbation. She has had 2 nebulizer treatments with some improvement though continues with shortness of breath, chest tightness, and diffuse wheezing. O2 saturation is randing from 89-92. Her CXR does not show a pneumonia or any other acute pathology. She does not have any extremity swelling but given history of PE, SOB, and chest discomfort, will order a CT scan to further evaluate for PE. Testing was head low at 3.0, this was repleted with oral potassium. We did give a dose IV Solu-Medrol and magnesium for treatment of her dyspnea. Differential Diagnosis Differential Diagnoses: The differential diagnosis associated with the presentation includes acute asthma exacerbation pneumonia pulmonary embolism upper respiratory infection sinusitis Admission/Observation Consideration of admission/observation: Escalation of care including admission/observation considered Lab Data [facility] Lab Attestation statement: I reviewed the patient's lab results. Potassium is low at 3.0 L. Glucose is mildly elevated at 121 mg/dL. 05/07/25 18:23 05/07/25 18:23 Labs: Lab Results 05/07/25 05/07/25 Range/Units 18:23 20:15 WBC 9.4 (4.8-10.8) X10*3/uL RBC 4.54 (4.20-5.50) X10*6/uL Hgb 13.5 (12.0-16.0) g/dl Hct 40.6 (37.0-47.0) % MCV 89.4 (80.0-98.0) fL MCH 29.7 (27.0-33.0) pg MCHC 33.3 (31.0-35.0) g/dl RDW 12.9 (11.0-16.0) % Plt Count 232 (160-400) X10*3/uL MPV 9.5 (9.4-12.3) fL Immature Gran % (Auto) 0.2 (0.0-0.4) % Neut % (Auto) 65.7 (45-73) % Lymph % (Auto) 21.2 (20-40) % [place] % (Auto) 8.1 (2-11) % Eos % (Auto) 3.9 (0-4) % Baso % (Auto) 0.9 (0-2) % Lymph # (Auto) 2.0 (1.2-4.9) X10*3/uL [place] # (Auto) 0.8 (0.1-1.2) X10*3/uL Eos # (Auto) 0.4 (0.0-0.4) X10*3/uL Baso # (Auto) 0.1 (0.0-0.2) X10*3/uL Abs Immat Gran (auto) 0.02 (0.00-0.03) X10*3/uL Absolute Neuts (auto) 6.2 (2.0-8.3) x10*3/uL Absolute Nucleated RBC 0.000 (0.0-0.012) X10*3/uL Nucleated RBC % (auto) 0.0 (0.0-0.2) /100WBC PT 11.0 (10.9-12.4) SEC INR 1.0 (0.9-1.1) VBG pH 7.32 (7.32-7.43) VBG pCO2 53 mmHg VBG pO2 43 mmHg VBG HCO3 27 H (22-26) mmol/L VBG O2 Saturation 57.0 % VBG Base Excess 0.6 mmol/L Sodium 144 (135-145) mmol/L Potassium 3.0 L D (3.3-5.1) mmol/L Chloride 107 (96-108) mmol/L Carbon Dioxide 26 (22-29) mmol/L Anion Gap 14 (12-20) BUN 9 (9-16) mg/dL Creatinine 0.66 (0.5-1.4) mg/dL Estim Creat Clear Calc 117.6 Estimated GFR > 60 Random Glucose 121 H (60-115) mg/dL Calcium 8.5 (8.4-10.2) mg/dL Magnesium 1.8 (1.6-2.6) mg/dL Total Bilirubin 0.5 (0.0-1.0) mg/dL AST 21 (5-31) U/L ALT 15 (0-31) U/L Alkaline Phosphatase 67 (39-117) U/L Troponin I High Sens < 2.7 (<3.5-17.0) ng/L Total Protein 6.8 (6.5-8.0) g/dL Albumin 4.4 (3.5-5.0) g/dL Beta HCG, Quant < 2 mIU/mL COVID-19 (MONI) Negative (Negative) COVID-19 Clin Com See Note Influenza Type A (SHERLYN) Negative (Negative) Influenza Type B (SHERLYN) Negative (Negative) Influenza A & B Note See Note ABG Data Attestation ABG: I personally reviewed and interpreted this ABG as follows: Interpretation: VBG showed HCO3 is 27 and otherwise unremarkable. Independent Interpretation I performed an independent interpretation of an: EKG and Plain X-Ray Radiology Impression Discussion of test interpretation with radiology: I have reviewed the radiologist's reading. External Record Review External record reviewed: Inpatient record Chronic Conditions Patient?s care impacted by: Other asthma Discharge Plan Discharge Clinical Impression: Asthma with exacerbation Patient Disposition: Admitted As Inpatient Print Language: German
[2025-05-07 20:42] LABS: COVID-19 Test Negative (Negative); IDNOW Serial# 55D5AD1C
[2025-05-07 20:43] LABS: IDNOW Serial# 58CA691E; Influenza B2 Negative (Negative)
[2025-05-07 22:07] VITALS: BP 117/58; PULSE 81; RESP 20; TEMP 36.6; O2SAT 96
[2025-05-07] MEDS: iohexoL 350 MG/ML 100 ML INFUS..BTL 65 ML IV (22:25)
[2025-05-07 22:35] VITALS: O2SAT 84
--- NOTE | 2025-05-07 22:37 | PC.NURSE ---
pt removed from 2l nc for ct scan bpt not replaced once back to room.spo2 noted @ 84%. pt replaced and sat up shashi shreyas made aware
--- NOTE | 2025-05-07 23:15 | PC.NURSE ---
pt made this rn chest tightness returned and feeling lightheaded. this rn contacted RT to bedside. Maynor shreyas made aware and to bedside
[2025-05-07 23:39] VITALS: PULSE 74; RESP 20; O2SAT 95
[2025-05-07] MEDS: Albuterol Sulfate 7.5 MG, Albuterol Sulfate (0.083%) 2.5 MG 10 MG INHALE (23:39)
[2025-05-08] VITALS (9 sets, daily range): BP systolic 114–124; BP diastolic 53–69; PULSE 72–83; RESP 16–21; TEMP 36.4–37.1; O2SAT 91–95; BMI 26.7
--- NOTE | 2025-05-08 00:32 | PM.IMHP ---
History of Present Illness Date of Service: 05/07/25 Attending physician on admission: Shantel Hernandez Chief Complaint: Shortness of breath Haroldo Byrd is a 34 years old woman with past medical history significant for asthma presents to the emergency department complaining of worsening shortness on breath over the last couple of days, wheezing, chest tightness and productive cough of clear sputum. She also reported some headache, suggestive fever and sore throat. She has been using nebulizers and inhalers at home with no significant improvement. She did not report any acute gastrointestinal or genitourinary symptoms. She said that she smoked cigarettes sometimes. In the ED, she was initially found to have an oxygen saturation of 84% on room air requiring supplemental oxygen. She also was found to have mild sinus tachycardia. Blood pressure is stable and there is no fever. There is no leukocytosis. Hemoglobin and platelets are normal. PH is 7.32 and pCO2 53. There is mild hypokalemia of 3.0. Renal function and LFTs are normal. Troponin is < 2.7. test is negative. Chest CTA showed no evidence of PE and lungs are clear. ECG, poor quality, sinus tachycardia HR 110 bpm. ED tx: Albuterol X2, magnesium 1 g IV, potassium chloride 40 mEq p.o., Solu-Medrol 125 mg IV Review of Systems Review of Systems: All 12 systems were reviewed and normal except as noted in HPI. [facility] Social History Advance Directives: No Advance Directives Information Provided: No Meds Allergies Allergy/AdvReac Type Severity Reaction Status Date / Time No Known Allergies Allergy Verified 05/07/25 18:07 Active Medications: Current Medications Acetaminophen (Acetaminophen 325 Mg Tablet) 975 mg PO Q6H PRN PRN Reason: Pain, Mild 1-3,fever,headache Albuterol Sulfate (Albuterol Sulfate (0.083%) 2.5 Mg/3 Ml Vial.Neb) 2.5 mg INHALE Q2H PRN PRN Reason: Shortness of Breath/Wheezing Albuterol/Ipratropium (Albuterol/Iprat 2.5/0.5mg 3 Ml Ampul.Neb) 3 ml INHALE RQ4H WHILE AWAKE JESSY Calcium Carbonate (Calcium Carbonate 750 Mg Tab.Chew) 750 mg PO Q4H PRN PRN Reason: Heartburn Enoxaparin Sodium (Enoxaparin Sodium 40 Mg/0.4 Ml Syringe) 40 mg SUBCUT Q24H [facility] Magnesium Hydroxide (Milk Of Magnesia 30 Ml Oral.Susp) 30 ml PO DAILY PRN PRN Reason: Constipation Melatonin (Melatonin 3 Mg Tablet) 6 mg PO BEDTIME PRN PRN Reason: Insomnia Sodium Chloride (0.9 % Sodium Chloride Flush 3 Ml Syringe) 3 ml IVFLUSH QSHIFT JESSY Physical Exam Vital Signs and Narrative: Vital Signs: Last Vital Signs Temp 98 F 05/07/25 22:07 Pulse 74 05/07/25 23:39 Resp 20 05/07/25 23:39 BP 117/58 L 05/07/25 22:07 Pulse Ox 84 L 05/07/25 22:35 O2 Del Method Room Air 05/07/25 22:35 O2 Flow Rate 2 05/07/25 22:07 Oxygen Flow Rate 2 05/07/25 18:04 BMI result Body Mass Index 26.6 General: Alert, oriented, in mild acute distress. Well nourished and cooperative. Afebrile. HEENT: Head normocephalic, atraumatic. PER, EOMI. Sclerae anicteric, conjunctiva clear. Oropharynx without erythema or exudate. Mucous membranes moist. Neck: Supple. Heart: RRR, no murmurs, rubs or gallops. Lungs: Tachypnea. Bilateral wheezing. No crackles. Normal respiratory effort. Abdomen: Soft, non tenderness, nondistended, normoactive bowel sounds. No hepatosplenomegaly, masses, rebound or guarding. Extremities: No calf tenderness bilaterally, no swelling Musculoskeletal: Full range of motion. No joint swelling, deformity, or tenderness. Normal muscle tone and strength. Skin: Warm/Dry. No pallor. No jaundice. Neurologic: Alert & oriented x4. Moving all extremities spontaneously. Normal speech. Psychological: Normal mood and affect. Thought process coherent. Results Labs 05/07/25 18:23 05/07/25 18:23 Labs: Laboratory Results - last 24 hr 05/07/25 05/07/25 18:23 20:15 MCV 89.4 MCH 29.7 MCHC 33.3 RDW 12.9 Plt Count 232 MPV 9.5 Immature Gran % (Auto) 0.2 Neut % (Auto) 65.7 Lymph % (Auto) 21.2 [place] % (Auto) 8.1 Eos % (Auto) 3.9 Baso % (Auto) 0.9 Lymph # (Auto) 2.0 [place] # (Auto) 0.8 Eos # (Auto) 0.4 Baso # (Auto) 0.1 Abs Immat Gran (auto) 0.02 Absolute Neuts (auto) 6.2 Absolute Nucleated RBC 0.000 Nucleated RBC % (auto) 0.0 PT 11.0 INR 1.0 VBG pH 7.32 VBG pCO2 53 VBG pO2 43 VBG HCO3 27 H VBG O2 Saturation 57.0 VBG Base Excess 0.6 Anion Gap 14 Estim Creat Clear Calc 117.6 Estimated GFR > 60 Random Glucose 121 H Calcium 8.5 Magnesium 1.8 Total Bilirubin 0.5 AST 21 ALT 15 Alkaline Phosphatase 67 Troponin I High Sens < 2.7 Total Protein 6.8 Albumin 4.4 Beta HCG, Quant < 2 COVID-19 (MONI) Negative COVID-19 Clin Com See Note Influenza Type A (SHERLYN) Negative Influenza Type B (SHERLYN) Negative Influenza A & B Note See Note Assessment and Plan (1) Asthma with exacerbation: Qualifiers: Asthma severity: severe Asthma persistence: persistent Qualified Code(s): J45.51 - Severe persistent asthma with (acute) exacerbation Status: Acute (2) Acute hypoxic respiratory failure: Status: Acute (3) Hypokalemia: Status: Acute Plan Haroldo Byrd is a 34 y/o woman admitted with: Acute hypoxic respiratory failure secondary to acute asthma exacerbation; severe persistent. Telemetry. Pulse oximetry. Supplemental O2 to keep O2 sats > 90%. Continue bronchodilator therapy, IV steroids and IV antibiotics. Patient advised to avoid tobacco smoking. Hypokalemia, likely secondary to albuterol. Received 40 mEq of KCl p.o. in the ED. Continue to monitor. Replete as needed. Code status: Full DVT prophylaxis: Lovenox Patient will need hospitalization for at least 2 midnights for hypoxic respiratory failure treatment with supplemental oxygen, bronchodilator therapy, IV steroids and IV antibiotics. This documentation was generated using dictation software; minor spreading or detonator assembler errors may be present. Quality Stroke Does the patient have a stroke diagnosis?: No VTE Prior VTE?: No VTE Risk Level:: Medical - moderate - high VTE Device Contraindication: Treatment Not Indicated VTE Drug Contraindication: N/A - Med Ordered
--- NOTE | 2025-05-08 01:45 | PC.NURSE ---
per admitting provider pt does not need blood cultures prior to admin of iv antibiotics
--- NOTE | 2025-05-08 03:30 | PC.NURSE ---
pt denies pain at this time remains on 2l nc iv antibiotics infusing. awaiting admission bed assignment
[2025-05-08 04:24] LABS: Hematocrit 37.3 % (37.0-47.0); Hemoglobin 12.3 g/dl (12.0-16.0); Imm Gran Pct Auto 0.2 % (0.0-0.4); Mean Corpuscular HGB Conc 33.0 g/dl (31.0-35.0); Mean Corpuscular Hemoglobin 29.2 pg (27.0-33.0); Mean Corpuscular Volume 88.6 fL (80.0-98.0); Platelet Count 236 X10*3/uL (160-400); Red Blood Count 4.21 X10*6/uL (4.20-5.50); White Blood Count 5.0 X10*3/uL (4.8-10.8)
[2025-05-08 04:25] LABS: Imm Gran Abs Auto 0.01 X10*3/uL (0.00-0.03); Lymphocytes Absolute Auto 0.3 X10*3/uL (1.2-4.9); MANUAL DIFF FLAG SCAN; NRBC Abs Auto 0.000 X10*3/uL (0.0-0.012); NRBC Pct Auto 0.0 /100WBC (0.0-0.2); SCAN SMEAR FLAG 1
[2025-05-08 04:50] LABS: Anion Gap 14 (12-20); Blood Urea Nitrogen 8 mg/dL (9-16); Calcium 8.5 mg/dL (8.4-10.2); Carbon Dioxide 21 mmol/L (22-29); Chloride 110 mmol/L (96-108); Creatinine Clr Calc Pharmacy 125.2; Estimated Glomerular Filt Rate > 60; Potassium 3.8 mmol/L (3.3-5.1); Sodium 141 mmol/L (135-145)
--- NOTE | 2025-05-08 05:51 | MHC.EDTECH ---
pt has not been up the whole time i was assigned to her.
--- NOTE | 2025-05-08 06:40 | HO.NURTONUR ---
pt presents ed to ed for sob with no relief from home nebs/ inhalers. _ PE, respiratory path panel pending. serology negative. pt ambulates independently. A+ox4. no o2 baseline, hypoxic 84% RA increased need for o2. 2l NC regular diet. plan for iv antibiotics and steroids. large bruise noted by this rn on L breast/chest wall pt states pit bull dog jumped on pt chest denies pain
[2025-05-08] MEDS: Albuterol/Iprat 2.5/0.5MG 3 ML AMPUL.NEB INHALE ×4 (07:49→20:23)
[2025-05-08 08:11] LABS: Chlamydia pneumoniae PCR Not Detected (Not Detect.); Coronavirus 229E PCR Not Detected (Not Detect.); Coronavirus HKU1 PCR Not Detected (Not Detect.); Coronavirus NL63 PCR Not Detected (Not Detect.); Coronavirus OC43 PCR Not Detected (Not Detect.); RSV PCR Not Detected (Not Detect.); Rhino/Enterovirus PCR Detected (Not Detect.)
[2025-05-08 08:27] LABS: Influenza A H1 PCR Not Detected (Not Detect.); Influenza A H1-2009 PCR Not Detected (Not Detect.); Influenza A H3 PCR Not Detected (Not Detect.); SARS-CoV-2 PCR Not Detected (Not Detect.)
--- NOTE | 2025-05-08 09:09 | PHA.MEDREC ---
Addendum entered by Thomas Rico RPh 05/08/25 09:15: Reviewed by [facility] Original Note: Pharmacy Consult ? Medication Reconciliation Pharmacy has completed the medication reconciliation. Patient states she is not taking any medications.
--- NOTE | 2025-05-08 09:33 | PC.NURSE ---
Personal cell phone charging at [facility] desk. Awaiting admission bed. Care ongoing by this RN.
[2025-05-08] MEDS: 0.9 % Sodium Chloride Flush 3 ML SYRINGE IVFLUSH ×3 (09:52→21:46)
--- NOTE | 2025-05-08 11:32 | PC.NURSE ---
Patient requesting to leave against medical advice and wishes to speak with hospitalist. Message sent to hospitalist, awaiting response.
--- NOTE | 2025-05-08 12:20 | MHC.CM.PN ---
Pt. lives with her 4 children, she does not have home health services, she uses a nebulizer, which she said is broken, and would like to get a replacement for. Her PCP was Dr. Damion CM to call office to find out who she has now. Pt. can arrange transport home at DC, DCP: home, self care. CM to follow for DC needs.
--- NOTE | 2025-05-08 13:07 | PC.NURSE ---
Patient no longer wishes to leave AMA. Care ongoing by this RN. Hospitalist notified of agreement to remain for [facility] admission. Bed assignment pending.
--- NOTE | 2025-05-08 14:07 | PC.NURSE ---
Called kitchen for new lunch tray. Didn't like meatloaf. Asked for saltines & grilled cheese sandwich instead. Awaiting new tray.
--- NOTE | 2025-05-08 15:12 | P.PNIM_ITS ---
Subjective Subjective Date of Service: 05/08/25 Interval History: Pt seen in ed, on RA, able to talk in complete sentences, states that she ants to go home as she feels fine but later on stated that she would stat, complains of chest pain with breathing and coughing Review of Systems -ve except as stated above Physical Exam 2 Exam: Exam: Alert and oriented x3 heart RRR abdomen: soft NT rest: on RA, diffuse wheezing throughout no DEBBIE psych: calm and cooperative Vital Signs: Vital Signs: Last Vital Signs Temp 98 F 05/07/25 22:07 Pulse 72 05/08/25 11:16 Resp 21 H 05/08/25 11:16 BP 114/69 05/08/25 05:49 Pulse Ox 95 05/08/25 05:49 O2 Del Method Nasal Cannula 05/08/25 05:49 O2 Flow Rate 2 05/08/25 05:49 Oxygen Flow Rate 2 05/07/25 18:04 BMI result Body Mass Index 26.6 Objective Data Active Medications Acetaminophen (Acetaminophen 325 Mg Tablet) 975 mg PO Q6H PRN PRN Reason: Pain, Mild 1-3,fever,headache Albuterol Sulfate (Albuterol Sulfate (0.083%) 2.5 Mg/3 Ml Vial.Neb) 2.5 mg INHALE Q2H PRN PRN Reason: Shortness of Breath/Wheezing Albuterol/Ipratropium (Albuterol/Iprat 2.5/0.5mg 3 Ml Ampul.Neb) 3 ml INHALE RQ4H WHILE AWAKE [facility] Last Admin: 05/08/25 11:15 Dose: 3 ml Documented By: JIGNA Calcium Carbonate (Calcium Carbonate 750 Mg Tab.Chew) 750 mg PO Q4H PRN PRN Reason: Heartburn Enoxaparin Sodium (Enoxaparin Sodium 40 Mg/0.4 Ml Syringe) 40 mg SUBCUT Q24H [facility] Last Admin: 05/08/25 09:52 Dose: 40 mg Documented By: SAILAJA Guaifenesin/Codeine Phosphate (Guaifen/Codeine Sf 200/20/10ml 10 Ml Liquid) 5 ml PO Q6H PRN PRN Reason: Cough Doxycycline Hyclate 100 mg/ (Sodium Chloride) 250 mls @ 166.67 mls/hr IV Q12H [facility] Last Infusion: 05/08/25 04:21 Dose: Infused Documented By: LENIN Magnesium Hydroxide (Milk Of Magnesia 30 Ml Oral.Susp) 30 ml PO DAILY PRN PRN Reason: Constipation Melatonin (Melatonin 3 Mg Tablet) 6 mg PO BEDTIME PRN PRN Reason: Insomnia Methylprednisolone Sodium Succinate (Methylprednisolone Sod Succ 40 Mg/Ml Vial) 40 mg IVPUSH Q8H [facility] Last Admin: 05/08/25 06:15 Dose: 40 mg Documented By: LENIN Sodium Chloride (0.9 % Sodium Chloride Flush 3 Ml Syringe) 3 ml IVFLUSH QSHIFT [facility] Last Admin: 05/08/25 09:52 Dose: 3 ml Documented By: ABLIAI Labs 05/08/25 04:11 05/08/25 04:11 Labs: Laboratory Results - last 24 hr 05/07/25 05/07/25 05/08/25 18:23 20:15 01:01 MCV 89.4 MCH 29.7 MCHC 33.3 RDW 12.9 Plt Count 232 MPV 9.5 Immature Gran % (Auto) 0.2 Neut % (Auto) 65.7 Lymph % (Auto) 21.2 [place] % (Auto) 8.1 Eos % (Auto) 3.9 Baso % (Auto) 0.9 Lymph # (Auto) 2.0 [place] # (Auto) 0.8 Eos # (Auto) 0.4 Baso # (Auto) 0.1 Abs Immat Gran (auto) 0.02 Absolute Neuts (auto) 6.2 Absolute Nucleated RBC 0.000 Nucleated RBC % (auto) 0.0 Smear Tech's Comments PT 11.0 INR 1.0 VBG pH 7.32 VBG pCO2 53 VBG pO2 43 VBG HCO3 27 H VBG O2 Saturation 57.0 VBG Base Excess 0.6 Anion Gap 14 Estim Creat Clear Calc 117.6 Estimated GFR > 60 Random Glucose 121 H Calcium 8.5 Magnesium 1.8 Total Bilirubin 0.5 AST 21 ALT 15 Alkaline Phosphatase 67 Troponin I High Sens < 2.7 Total Protein 6.8 Albumin 4.4 Beta HCG, Quant < 2 Respiratory Panel [place] See Note Adenovirus (Rapid PCR) Not Detected B.pert (TEM-PCR) Not Detected B.parapertussis DNA PCR Not Detected C. pneumoniae DNA (PCR) Not Detected Coronavirus OC43 (PCR) Not Detected Coronavirus HKU1 (PCR) Not Detected Coronavirus 229E (PCR) Not Detected COVID-19 (MONI) Negative COVID-19 Clin Com See Note Coronavirus NL63 (PCR) Not Detected Human Metapneumovir PCR Not Detected Influenza Type A (SHERLYN) Negative Influenza A (RT-PCR) Not Detected Influenza A (H1) PCR Not Detected Influ A (H1/09) PCR Not Detected Influenza A (H3) PCR Not Detected Influenza Type B (SHERLYN) Negative Influenza B (RT-PCR) Not Detected Influenza A & B Note See Note M. pneumoniae (PCR) Not Detected Parainfluenza 1 (PCR) Not Detected Parainfluenza 2 (PCR) Not Detected Parainfluenza 3 (PCR) Not Detected Parainfluenza 4 (PCR) Not Detected RSV (PCR) Not Detected Entero/Rhino (PCR) Detected A SARS-CoV-2 RNA (RT-PCR) Not Detected 05/08/25 04:11 MCV 88.6 MCH 29.2 MCHC 33.0 RDW 13.1 Plt Count 236 MPV 9.9 Immature Gran % (Auto) 0.2 Neut % (Auto) 92.8 H Lymph % (Auto) 5.8 L [place] % (Auto) 1.0 L Eos % (Auto) 0.0 Baso % (Auto) 0.2 Lymph # (Auto) 0.3 L [place] # (Auto) 0.1 Eos # (Auto) 0.0 Baso # (Auto) 0.0 Abs Immat Gran (auto) 0.01 Absolute Neuts (auto) 4.6 Absolute Nucleated RBC 0.000 Nucleated RBC % (auto) 0.0 Smear Tech's Comments VERIFIED PT INR VBG pH VBG pCO2 VBG pO2 VBG HCO3 VBG O2 Saturation VBG Base Excess Anion Gap 14 Estim Creat Clear Calc 125.2 Estimated GFR > 60 Random Glucose 198 H Calcium 8.5 Magnesium Total Bilirubin AST ALT Alkaline Phosphatase Troponin I High Sens Total Protein Albumin Beta HCG, Quant Respiratory Panel [place] Adenovirus (Rapid PCR) B.pert (TEM-PCR) B.parapertussis DNA PCR C. pneumoniae DNA (PCR) Coronavirus OC43 (PCR) Coronavirus HKU1 (PCR) Coronavirus 229E (PCR) COVID-19 (MONI) COVID-19 Clin Com Coronavirus NL63 (PCR) Human Metapneumovir PCR Influenza Type A (SHERLYN) Influenza A (RT-PCR) Influenza A (H1) PCR Influ A (H1/09) PCR Influenza A (H3) PCR Influenza Type B (SHERLYN) Influenza B (RT-PCR) Influenza A & B Note M. pneumoniae (PCR) Parainfluenza 1 (PCR) Parainfluenza 2 (PCR) Parainfluenza 3 (PCR) Parainfluenza 4 (PCR) RSV (PCR) Entero/Rhino (PCR) SARS-CoV-2 RNA (RT-PCR) Assessment and Plan (1) Asthma with exacerbation: Status: Acute (2) Acute hypoxic respiratory failure: Status: Acute (3) Rhinovirus infection: Status: Acute Plan Haroldo Byrd is a 34 y/o woman admitted with: Acute hypoxic respiratory failure secondary to acute asthma exacerbation; severe persistent. resolved rhinovirus infection needed supplemental O2 briefly, on IV steroids inh cough syrup Tylenol for pain and fever on RA now, Hypokalemia, likely secondary to albuterol. Received 40 mEq of KCl p.o. in the ED. resolved Code status: Full DVT prophylaxis: Lovenox Quality Stroke Does the patient have a stroke diagnosis?: No VTE Prior VTE?: No VTE Risk Level:: Medical - moderate - high VTE Device Contraindication: Treatment Not Indicated VTE Drug Contraindication: N/A - Med Ordered
[2025-05-08] MEDS: guaiFEN/Codeine SF 200/20/10ML 10 ML LIQUID 5 ML PO (15:22)
[2025-05-09] MEDS: guaiFEN/Codeine SF 200/20/10ML 10 ML LIQUID 5 ML PO (03:04)
[2025-05-09 03:17] VITALS: BP 125/64; PULSE 63; RESP 18; TEMP 36.3; O2SAT 90
[2025-05-09 07:08] VITALS: BP 116/66; PULSE 94; RESP 18; TEMP 37.2; O2SAT 97
[2025-05-09] MEDS: Albuterol/Iprat 2.5/0.5MG 3 ML AMPUL.NEB INHALE ×2 (08:22→11:36)
[2025-05-09 08:25] VITALS: PULSE 92; RESP 16; O2SAT 98
[2025-05-09] MEDS: 0.9 % Sodium Chloride Flush 3 ML SYRINGE IVFLUSH (08:41)
[2025-05-09 11:38] VITALS: PULSE 88; RESP 16
--- NOTE | 2025-05-09 12:02 | PM.DS ---
DS: Providers Provider Date of Service: 05/09/25 Date of admission: 05/07/25 23:41 Date of discharge: 05/09/25 Primary care physician: Unknown Physician DS: Diagnosis Discharge Diagnosis (1) Asthma with exacerbation: Status: Acute (2) Acute hypoxic respiratory failure: Status: Acute (3) Rhinovirus infection: Status: Acute DS: Summary Hospital Course Hospital Course: Haroldo Byrd is a 34 y/o woman admitted with: Acute hypoxic respiratory failure secondary to acute asthma exacerbation; severe persistent. resolved rhinovirus infection needed supplemental O2 briefly, on IV steroids inpt inh cough syrup Tylenol for pain and fever on RA now, discharged on PO prednisone, cough syrup, doxycycline and inh. Hypokalemia, likely secondary to albuterol. Received 40 mEq of KCl p.o. in the ED. resolved Status at Discharge Functional status at discharge: independent ambulation Overall status at discharge: patient is back to baseline Time Attestation Discharge Coordination Time (in mins): 38 mins Quality: Safe Use of Opioids Does Pt have an Active Cancer Diagnosis on the Problem List?: No Quality: Stroke Does the patient have a stroke diagnosis?: No Physical Exam Exam: Exam: A&Ox3 on RA, mild ins wheezing improved from before, Heart RRR abdomen soft no tender no DEBBIE Vital Signs: Vital Signs: Last Vital Signs Temp 98.9 F 05/09/25 07:08 Pulse 88 05/09/25 11:38 Resp 16 05/09/25 11:38 BP 116/66 05/09/25 07:08 Pulse Ox 97 05/09/25 07:08 O2 Del Method Room Air 05/09/25 07:08 O2 Flow Rate 2 05/08/25 05:49 Oxygen Flow Rate 2 05/07/25 18:04 BMI result Body Mass Index 26.7 Discharge Plan Discharge Anticipated Discharge Date/Time: 05/09/25 11:48 Patient Disposition: Home, Self-Care Discharge Diagnosis: asthma exacerbation in the setting of rhinovirus infection Referrals: Physician,Unknown J [Primary Care Provider, Medical] - 1 Week Discharge Medications: New doxycycline monohydrate 100 mg tablet 100 mg PO BID 4 Days Qty: 8 0RF albuterol sulfate 2.5 mg /3 mL (0.083 %) Solution For Nebulization 2.5 mg inhalation Q2H PRN (Reason: Shortness Of Breath/Wheezing) Qty: 75 0RF prednisone 10 mg tablet 40 mg PO DAILY 4 Days Qty: 16 0RF guaifenesin [Adult Tussin Chest Congestion] 100 mg/5 mL liquid 200 mg PO Q4H PRN (Reason: cough) Qty: 118 0RF Discharge Orders: Discharge Order (Routine); Ordered 05/09/25 Ordered By: Maribeth Caldera Activity on Discharge: As tolerated Stand Alone Forms: Patient Portal Discharge page Print Language: Slovenian Care Plan Goals: You came in with aswthma exacerbation in the setting of rhinovirus infection, treated with Prednisone and Inh with good response. continue medications prescribed at the time of discharge as directed. Health Concerns: as above Plan of Treatment: as above Assessment: Pt is on RA at the time of discharge ambulating without any breathing difficulty. Patient Instructions: Asthma (GEN)
--- NOTE | 2025-05-09 12:06 | MHC.CM.PN ---
PATIENT IS DC HOME TODAY - SELF CARE. RN AWARE OF PLAN.
--- NOTE | 2025-05-09 12:10 | MHC.CM.PN ---
POST DC NOTE - PATIENT STATES THAT SHE IS ACITVE WITH [facility] FOR PCP. PER CM CALL TO OFFICE, PATIENT HAS NOT ESTABLISHED CARE WITH [facility] SINCE DR REYES LEFT THE PRACTICE.
== END 2025-05-09 12:00 | disposition home or self-care (01) | DRG 141 ==
LOC: HO.ED 23:26 → HO.EDOVER 23:58 → HO.IMC 05-08 14:26
PROVIDERS: Physician Assistant; Physician Assistant Medical; Admitting Provider Internal Medicine; Emergency Provider Emergency Medicine Emergency Medical Services; Visit Provider Hospitalist
DX: J45.51 Severe persistent asthma with (acute) exacerbation (principal); J96.10 Chronic respiratory failure, unspecified whether with hypoxia or hypercapnia; E87.6 Hypokalemia; B97.89 Other viral agents as the cause of diseases classified elsewhere; T48.6X5A Adverse effect of antiasthmatics, initial encounter; Z20.822 Contact with and (suspected) exposure to COVID-19; Z86.711 Personal history of pulmonary embolism; Z79.899 Other long term (current) drug therapy
CPT/HCPCS: 36415; 71045; 71275; 80048; 80053; 82803; 83735; 84484; 84702; 85025; 85610; 87502; 87633; 87635; 93005; 94640; 99285; J1171; J1271; J1650; J2919; J3475; Q9967

== ENCOUNTER → 2025-05-07 17:49 | Outpatient (BNV) | payer OTHER, SELFPAY | PROVIDERS: Admitting Provider Internal Medicine; Emergency Provider Emergency Medicine Emergency Medical Services; Visit Provider Internal Medicine Cardiovascular Disease | DX: R00.0 Tachycardia, unspecified (principal) | CPT/HCPCS: 93010 ==

== ENCOUNTER → 2025-05-07 17:49 | Outpatient (BNV) | payer OTHER, SELFPAY | PROVIDERS: Emergency Provider Emergency Medicine Emergency Medical Services; Visit Provider Radiology Diagnostic Radiology | DX: R06.02 Shortness of breath (principal) | CPT/HCPCS: 71045; 71275 ==

== ENCOUNTER → 2025-05-07 23:41 | Outpatient (BNV) | payer OTHER, SELFPAY | PROVIDERS: Admitting Provider Internal Medicine; Emergency Provider Emergency Medicine Emergency Medical Services; Visit Provider Internal Medicine | DX: J45.51 Severe persistent asthma with (acute) exacerbation (principal); J96.01 Acute respiratory failure with hypoxia; E87.6 Hypokalemia; B34.8 Other viral infections of unspecified site | CPT/HCPCS: 99223; 99499 ==

== ENCOUNTER 2025-06-24 08:41 | Emergency (ER) | payer OTHER, SELFPAY ==
[2025-06-24] VITALS (9 sets, daily range): BP systolic 99–133; BP diastolic 47–82; PULSE 67–82; RESP 15–20; TEMP 36.7–36.8; O2SAT 91–97; BMI 25.0
--- NOTE | ~2025-06-24 | XR_ITS ---
CLINICAL HISTORY: sob 1 view chest x-ray Comparison: CR - XR CHEST 2V - 05/07/25 18:19 EDT Findings: No consolidation, pleural effusion or pneumothorax. Normal size heart. No acute fracture. IMPRESSION: No acute cardiopulmonary process. This document has been electronically signed by: Mckayla Thornton DO on 06/24/2025 12:12:19
--- NOTE | 2025-06-24 08:49 | ED_ITS ---
HPI - General Adult General Chief complaint: Dyspnea Stated complaint: DIFF BREATHING,86% RA PER EMS Time Seen by Provider: 06/24/25 08:43 Source: patient and EMS Mode of arrival: EMS Limitations: no limitations History of Present Illness ED Provider: REBECCA Dacosta HPI narrative: Chief Complaint: ?I?m short of breath.? History of Present Illness: 34-year-old female with a known history of asthma presents via ambulance for worsening shortness of breath (SOB) over the last few days. She reports a recent viral illness with cold sweats, body aches, and myalgias. Since then, she has required her home nebulizer every 2?3 hours?significantly more than her baseline?and has also been using her rescue inhaler at home. She does not use supplemental oxygen at home. She endorses chest tightness and poor oral intake (unable to keep food down, tolerating only limited fluids). She denies abdominal pain. No known sick contacts except that her was ?asleep? today; she suspected influenza a few days ago. No history of alcohol or illicit drug use. Related Data Previous Rx's ?Medication ?Instructions ?Recorded albuterol sulfate 2.5 mg/3 mL 2.5 mg (3 mL) inhalation Q2H PRN 05/09/25 (0.083 %) solution for nebulization Shortness Of Breat h/Wheezing #75 mL albuterol sulfate 90 mcg/actuation 1 inh inhalation QI D PRN shortness 05/09/25 aerosol inhaler (Ventolin HFA) of breath or wheezing # 8.5 grams doxycycline monohydrate 100 mg 100 mg PO BID 4 days #8 tabs 05/09/25 tablet guaifenesin 100 mg/5 mL oral 200 mg (10 mL) PO Q4H PRN cough 05/09/25 liquid (Adult Tussin Chest #118 mL Congestion) prednisone 10 mg tablet 40 mg (4 x 10 mg) PO DAILY 4 days 05/09/25 #16 tabs albuterol sulfate 2.5 mg/3 mL 2.5 mg (3 mL) inhalation Q6H #75 mL 06/24/25 (0.083 %) solution for nebulization albuterol sulfate 90 mcg/actuation 2 inh inhalation Q4 -6H PRN 06/24/25 breath activated powder inhaler shortness of breath or wheezing #1 ea ondansetron 4 mg disintegrating 4 mg PO Q6H PRN nausea and 06/24/25 tablet vomiting #14 tabs prednisone 20 mg tablet 40 mg (2 x 20 mg) PO DAILY 5 days 06/24/25 #10 tabs Allergies Allergy/AdvReac Type Severity Reaction Status Date / Time bee pollen (bee stings) Allergy Anaphylaxis Verified 06/24/25 09:00 Review of Systems 2 Review of Systems: Review of Systems: * Respiratory: Positive for shortness of breath, increased wheezing. * Cardiovascular: Positive for chest tightness. * Constitutional: Positive for cold sweats, body aches/myalgias. * GI: Positive for poor oral intake (unable to keep food down, tolerating only limited fluids); negative for abdominal pain. Yes all other systems are reviewed and are negative PMFSH Past Medical History Attestation statement: The following information was validated with the patient. Source: old records reviewed and nursing notes reviewed Social History Social History Household Members: Spouse and Children Housing: House Do you presently have visiting nurse or other home services: No Patient Tobacco Use Status: Current someday Tobacco user Smoked in Last 30 Days: Yes Use of substances other than those prescribed or required for medical reasons: No Advance Directives: No Advance Directives Information Provided: Yes Do you have a plan to hurt others: No Plan service: No Physical Exam ED Exam Exam: * General: Appears in moderate respiratory distress. * Respiratory: Diffuse expiratory wheezes in all lung mojica. + resp distress * Cardiovascular: Tachycardic, regular rhythm. * Neurologic: Alert and oriented ?4; grossly normal cranial nerves. * Abdomen: Soft, nontender, nondistended. Normal * Extremities: Normal strength in upper and lower extremities. Vital Signs: Vital Signs - 24 hr 06/24/25 08:57 06/24/25 09:04 06/24/25 10:49 Temperature 98.0 F Pulse Rate 72 67 76 Respiratory Rate 18 20 19 Blood Pressure 133/77 119/71 113/67 Pulse Oximetry 93 93 91 L Oxygen Delivery Method Nasal Cannula Nasal Cannula Nasal Cannula Oxygen Flow Rate 2.5 4 06/24/25 11:34 06/24/25 12:33 06/24/25 13:23 Temperature 98.1 F Pulse Rate 75 80 Respiratory Rate 15 16 Blood Pressure 99/58 L Pulse Oximetry 93 91 L Oxygen Delivery Method Room Air Nasal Cannula Oxygen Flow Rate 4 BMI result Body Mass Index 25.0 vss Course Reevaluation(s) Reevaluation #1: CBC unremarkable. Chemistry with low potassium 2.8 it appears as though patient is potassium runs low at baseline will give her oral potassium as well as IV to replete. Magnesium 3.4. She did receive magnesium for breathing purposes. Flu, COVID, RSV negative. Chest x-ray pending. Patient appears better. Time: 10:21 Reevaluation #2: Chest x-ray with no acute cardiopulmonary process. Time: 12:10 Reevaluation #3: Ambulatory trial done patient is 92-93% on room air with ambulation she feels better. She would like to go home in his not interested in admission. I will send her home with albuterol, nebulizing treatments, prednisone. I did advise her to return with new or worsening symptoms. I suspect upper respiratory infection again patient denying admission. On repeat exam wheezing much improved patient appears much better no labored breathing. Patient tolerating p.o. eating. No nausea or vomiting. Educated patient on diagnosis and treatment plan, answered all question, patient verbalizes understanding. At this time patient will be discharged home, advised to return with new or worsening symptoms. Educated on worrisome signs and symptoms and when to return. At this time I feel comfortable discharge home. Time: 14:22 Medications Administered Discontinued Medications Generic Name Dose Route Start Last Admin Trade Name Freq PRN Reason Stop Dose Admin Albuterol Sulfate 2.5 mg/ 0 mg 06/24/25 13:17 06/24/25 13:20 Albuterol/Ipratropium 3 ml INHALE 06/24/25 13:18 1 dose ONCE ONE Administration Magnesium Sulfate 2 gm in 50 mls @ 25 mls/hr 06/24/25 08:51 06/24/25 10:59 Magnesium Sulfate/H2o IV 06/24/25 10:50 Infused ONCE ONE Infusion Potassium Chloride 10 meq in 100 mls @ 100 mls/hr 06/24/25 10:15 06/24/25 13:01 Potassium Chloride/H20 IV 06/24/25 12:14 Infused Q1H JESSY Infusion Methylprednisolone Sodium Succinate 125 mg 06/24/25 08:51 06/24/25 09:01 Methylprednisolone Sod Succ 125 Mg/2 Ml Vial IVPUSH 06/24/25 08:52 125 mg ONCE ONE Administration Potassium Chloride 40 meq 06/24/25 09:56 06/24/25 10:48 Potassium Chloride Packet 20 Meq Packet PO 06/24/25 09:57 40 meq ONCE ONE Administration Medical Decision Making Medical Decision Making [facility] Narrative: 0850 34-year-old female with history of asthma presenting with acute exacerbation likely triggered by recent viral illness, evidenced by increased rescue medication use, diffuse wheezing, hypoxia, and moderate respiratory distress. Problem #1: Acute asthma exacerbation Assessment: Worsening SOB ? few days, increased nebulizer use, also using inhaler at home, hypoxia on arrival, diffuse expiratory wheezes, tachycardia. Plan: * Albuterol 5 mg nebulizer administered on arrival; continue nebulizer treatments per [facility] asthma protocol. * IV magnesium sulfate. * IV Solu-Medrol (methylprednisolone) for bronchospasm. * Order labs (CBC, BMP) and viral panel (Flu, COVID, RSV). * Chest X-ray to evaluate for alternative pathology. Differential Diagnosis Differential Diagnoses: The differential diagnosis associated with the presentation includes * Acute asthma exacerbation (most likely): History of asthma, increased use of nebulizer and inhaler, diffuse expiratory wheezes, hypoxia, and moderate respiratory distress. * Viral respiratory infection (e.g., influenza, RSV, COVID-19): Recent viral symptoms including cold sweats, body aches, and myalgias; possible exposure from ; viral panel pending. * Pneumonia: Acute respiratory symptoms and hypoxia; chest X-ray ordered to evaluate for infiltrate or consolidation. * Acute bronchitis: Recent viral illness and increased respiratory symptoms; may overlap with asthma exacerbation. * Heart failure/exacerbation: Tachycardia and hypoxia could be consistent, though no history or exam findings of volume overload; consider if symptoms persist or worsen. * Pulmonary embolism: Acute onset hypoxia and tachycardia; less likely without risk factors or chest pain, but considered in differential. * Pneumothorax: History of collapsed lung; chest X-ray ordered to rule out recurrence, especially with acute respiratory distress. * Other causes of hypoxia (e.g., metabolic, toxic, or cardiac): Consider if initial workup is unrevealing or symptoms do not improve. Admission/Observation Consideration of admission/observation: Escalation of care including admission/observation considered (possible ) Lab Data [facility] Lab Attestation statement: I reviewed the patient's lab results. 06/24/25 09:19 06/24/25 09:19 Labs: Lab Results 06/24/25 Range/Units 09:19 WBC 8.2 (4.8-10.8) X10*3/uL RBC 4.77 (4.20-5.50) X10*6/uL Hgb 14.3 (12.0-16.0) g/dl Hct 42.5 (37.0-47.0) % MCV 89.1 (80.0-98.0) fL MCH 30.0 (27.0-33.0) pg MCHC 33.6 (31.0-35.0) g/dl RDW 12.2 (11.0-16.0) % Plt Count 263 (160-400) X10*3/uL MPV 9.7 (9.4-12.3) fL Immature Gran % (Auto) 0.2 (0.0-0.4) % Neut % (Auto) 36.4 L (45-73) % Lymph % (Auto) 30.8 (20-40) % [place] % (Auto) 7.9 (2-11) % Eos % (Auto) 24.0 H (0-4) % Baso % (Auto) 0.7 (0-2) % Lymph # (Auto) 2.5 (1.2-4.9) X10*3/uL [place] # (Auto) 0.7 (0.1-1.2) X10*3/uL Eos # (Auto) 2.0 H (0.0-0.4) X10*3/uL Baso # (Auto) 0.1 (0.0-0.2) X10*3/uL Abs Immat Gran (auto) 0.02 (0.00-0.03) X10*3/uL Absolute Neuts (auto) 3.0 (2.0-8.3) x10*3/uL Absolute Nucleated RBC 0.000 (0.0-0.012) X10*3/uL Nucleated RBC % (auto) 0.0 (0.0-0.2) /100WBC Smear Tech's Comments VERIFIED Sodium 142 (135-145) mmol/L Potassium 2.8 L* D (3.3-5.1) mmol/L Chloride 104 (96-108) mmol/L Carbon Dioxide 25 (22-29) mmol/L Anion Gap 16 (12-20) BUN 6 L (9-16) mg/dL Creatinine 0.75 (0.5-1.4) mg/dL Estim Creat Clear Calc 93.2 Estimated GFR > 60 Random Glucose 111 (60-115) mg/dL Calcium 9.1 D (8.4-10.2) mg/dL Magnesium 3.4 H (1.6-2.6) mg/dL Total Bilirubin 0.3 (0.0-1.0) mg/dL AST 21 (5-31) U/L ALT 28 (0-31) U/L Alkaline Phosphatase 73 (39-117) U/L Troponin I High Sens < 2.7 (<3.5-17.0) ng/L Total Protein 7.0 (6.5-8.0) g/dL Albumin 4.3 (3.5-5.0) g/dL Influenza Type A (PCR) NEGATIVE (Negative) Influenza Type B (PCR) NEGATIVE (Negative) RSV RNA Qual (PCR) NEGATIVE (Negative) SARS-CoV-2 RNA (RT-PCR) NEGATIVE (Negative) Independent Interpretation I performed an independent interpretation of an: Plain X-Ray (Findings: No consolidation, pleural effusion or pneumothorax. Normal size heart. No acute fracture. IMPRESSION: No acute cardiopulmonary process.) Radiology Impression Discussion of test interpretation with radiology: I have reviewed the radiologist's reading. Independent Historian Clinical information obtained from an independent historian. History obtained from or confirmed by: EMS External Record Review External record reviewed: Inpatient record, Office record, Outpatient record, Prior outpatient labs, Prior outpatient radiology, Primary care record and Outside ED record Tests considered The following testing was considered but not selected: I did consider abdominal CT as there is nausea vomiting however no abdominal tenderness on exam. Chronic Conditions Patient?s care impacted by: Other (see hpi ) Critical Care Time Critical Care Time Critical Care Time: Yes Total Critical Care Time: 35 Attestation: I attest to this time spent taking care of the patient, obtaining history, physical, reviewing labs, imaging, treatment of patients condition +/- specialist/hospitalist consult +/- procedure Discharge Plan Discharge Clinical Impression: Asthma with exacerbation, Hypoxia Patient Disposition: Home, Self-Care Instructions: Asthma (ED), Hypoxia (ED), Wheezing (ED) Additional Instructions: Take your medications as prescribed. If you were prescribed antibiotics today, it is important that you take your medication to their entirety, do not skip any doses, do not finish them early. Follow-up with your primary care provider this week. Return to the emergency department with new or worsening symptoms. Such as fevers, chills, chest pain, shortness of breath, nausea, vomiting, dizziness, headache, vision changes, lethargy In case of emergency call 911 Prescriptions: New albuterol sulfate 2.5 mg /3 mL (0.083 %) solution for nebulization 2.5 mg inhalation Q6H Qty: 75 0RF prednisone 20 mg tablet 40 mg PO DAILY 5 Days Qty: 10 0RF albuterol sulfate 90 mcg/actuation aerosol powdr breath activated 2 inh inhalation Q4-6H PRN (Reason: shortness of breath or wheezing) Qty: 1 0RF ondansetron 4 mg tablet,disintegrating 4 mg PO Q6H PRN (Reason: nausea and vomiting) Qty: 14 0RF No Action doxycycline monohydrate 100 mg tablet 100 mg PO BID 4 Days Qty: 8 0RF albuterol sulfate 2.5 mg /3 mL (0.083 %) Solution For Nebulization 2.5 mg inhalation Q2H PRN (Reason: Shortness Of Breath/Wheezing) Qty: 75 0RF prednisone 10 mg tablet 40 mg PO DAILY 4 Days Qty: 16 0RF guaifenesin [Adult Tussin Chest Congestion] 100 mg/5 mL liquid 200 mg PO Q4H PRN (Reason: cough) Qty: 118 0RF albuterol sulfate [Ventolin HFA] 90 mcg/actuation HFA aerosol inhaler 1 inh inhalation QID PRN (Reason: shortness of breath or wheezing) Qty: 8.5 0RF Referrals: [facility] [Primary Care Provider, Medical] Print Language: Tongan
[2025-06-24] MEDS: Magnesium Sulfate/H2O 2 GM/50 ML PIGGYBACK IV (08:55)
[2025-06-24 09:26] LABS: Hematocrit 42.5 % (37.0-47.0); Hemoglobin 14.3 g/dl (12.0-16.0); Imm Gran Abs Auto 0.02 X10*3/uL (0.00-0.03); Imm Gran Pct Auto 0.2 % (0.0-0.4); Lymphocytes Absolute Auto 2.5 X10*3/uL (1.2-4.9); MANUAL DIFF FLAG SCAN; Mean Corpuscular HGB Conc 33.6 g/dl (31.0-35.0); Mean Corpuscular Hemoglobin 30.0 pg (27.0-33.0); Mean Corpuscular Volume 89.1 fL (80.0-98.0); NRBC Abs Auto 0.000 X10*3/uL (0.0-0.012); NRBC Pct Auto 0.0 /100WBC (0.0-0.2); Platelet Count 263 X10*3/uL (160-400); Red Blood Count 4.77 X10*6/uL (4.20-5.50); SCAN SMEAR FLAG 1; White Blood Count 8.2 X10*3/uL (4.8-10.8)
[2025-06-24 09:57] LABS: Alanine Aminotransferase 28 U/L (0-31); Albumin Level 4.3 g/dL (3.5-5.0); Alkaline Phosphatase 73 U/L (39-117); Anion Gap 16 (12-20); Aspartate Amino Transferase 21 U/L (5-31); Blood Urea Nitrogen 6 mg/dL (9-16); Calcium 9.1 mg/dL (8.4-10.2); Carbon Dioxide 25 mmol/L (22-29); Chloride 104 mmol/L (96-108); Creatinine Clr Calc Pharmacy 93.2; Estimated Glomerular Filt Rate > 60; Magnesium 3.4 mg/dL (1.6-2.6); Potassium 2.8 mmol/L (3.3-5.1); Sodium 142 mmol/L (135-145); Total Protein 7.0 g/dL (6.5-8.0)
[2025-06-24 10:03] LABS: Resp Syncy Virus RNA Qual PCR NEGATIVE (Negative); SARS COV2 PCR INHOUSE NEGATIVE (Negative)
--- OUTSIDE RECORDS SUMMARY | 2025-06-24 10:07 | XMS_ITS | Clinical Summary ---
Author Organization [facility] [address] [facility] Address [address] [place] [address] Phone Care Team Providers Care Territory Supervisor Name Role Phone Mary Jane Salinas MD Primary Care Provider [phone] Allergies Active Allergy Reactions Criticality Noted Date Comments Bee Venom Protein (Honey Bee) Swelling High 2019 Medications aspirin ([place]) 81 mg capsule Take 1 capsule by mouth daily. 07/16/2021 Active ferrous gluconate (FERGON) 324 mg (38 mg iron) tablet Take 1 tablet by mouth daily. 09/03/2021 Active PNV,calcium [id number] acid ( Plus, calcium carb,) 27 mg [...] 06/09/2021- according to pt was admitted at [facility] [place]5 days and treated for Pneumonia, discharged [...] early is normal Level 2 Survey (at [facility] for BMI >40) Refer to nutrition for BMI >40 Growth US at 32 and 36 weeks for for BMI >40 Weekly NST at 32 weeks for BMI >45 Screen for TITI (using tool) and refer for sleep study if positive Anesthesia consult for pre- BMI >45 or >50 lb weight gain Transfer to [facility] for pre- BMI >50 DVT prophylaxis- [...] History Surgery Date Site/Laterality Comments APPENDECTOMY PROCEDURE: CO APPENDECTOMY; COMMENT: age 14 SALPINGOOPHORECTOMY Bilateral PROCEDURE: CO LAPAROSCOPY W/RMVL ADNEXAL STRUCTURES; COMMENT: cyst removed [...] acco rding to pt was admitted at [facility] x5 days and treated for Pneumonia, discharged [...] Livin g Cadence Putnam on Complications:None Delivery Location:[facility] Comments:went into lab or, SROM 2013 Term 42w 2d 16h 01m 3710 g (130.9 oz) F Vag-S pont Epidur al N Livin g 8 9 Fuentes castillo Complications:None Delivery Location:[facility] Comments: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 2019 Term 41w 1d 7h 45m 7h 00m/0h 41m/0h 04m 3460 g (122.1 oz) F Vag-S pont Epidur al Livin g 8 9 Simon Sifuentes CNM Complications:None Delivery Location:[facility] Comments:IOL for post dates 2021 Term [...] Depression Screening 07/26/2024 COVID-19 Vaccine (1 - 2024-2 6 season) 2025 Influenza Vaccine (#1) 2025 07/05/2009 [...] * Cervical Cancer Screening: HPV (04/28/2021) Pathologist [facility] Cervical Cancer Screening: HPV Negative, Abstracted [facility] Provider HEALTH MAINTENANCE Final Result * HIV Screening (03/11/2021) [facility] HIV Screening Abstracted [facility] Provider HEALTH MAINTENANCE Final Result * Hepatitis C Screening (03/11/2021) [facility] Hepatitis C Screening Abstracted [facility] Provider HEALTH MAINTENANCE Final Result * Lipid panel (07/05/2009) [facility] LDL/HDL Ratio 2 0 - 4 Triglycerides 44 0 - 150 mg/dL Cholesterol 153 0 - 200 mg/dL HDL 74 >=40 mg/dL LDL Cholesterol 71 0 - 100 mg/dL Blood Venous blood specimen / Unknown [facility] Provider LAB BLOOD ORDERABLES Mone l Result from Last 3 Months or Most Recently Relevant to Health Maintenance [place] [id number] [facility] PUBLIC PLANS YOBANY HOUGH [id number] Care Teams Territory Supervisor Relationship Specialty Start Date End Date Mary Jane Salinas MD [address] [place] [id number] PCP - General 07/07/23
[2025-06-24] MEDS: Potassium Chloride/H20 10 MEQ/100 ML PIGGYBACK 100 MEQ IV ×2 (10:48→11:48)
[2025-06-24] MEDS: Potassium Chloride Packet 20 MEQ PACKET 40 MEQ PO (10:48)
--- NOTE | 2025-06-24 10:50 | PC.NURSE ---
Pt desat to 88% on 2.5 O2 NC- increased to 4L with good effect, O2 sat increased to 92%. Pt O2 intermittently decreases into high 80s and increases back into mid 90s. PA Made aware. Respirations even and unlabored, no increased wob/sob noted, no respiratory distress noted. Call jeff within reach, all needs met at this time.
[2025-06-24 11:19] LABS: Troponin-I High Sensitivity < 2.7 ng/L (<3.5-17.0)
[2025-06-24] MEDS: Albuterol Sulfate 2.5 MG, Albuterol/Iprat 2.5/0.5MG 3 ML 3 ML INHALE (13:20)
--- NOTE | 2025-06-24 14:18 | MHC.EDTECH ---
pt ambulated steadily in [address], walking o2 sat steady @ 92% RA, dropped to 91% RA, provider and RN aware
[2025-06-24 15:07] LABS: Potassium 3.5 mmol/L (3.3-5.1)
== END 2025-06-24 15:29 | disposition home or self-care (01) ==
PROVIDERS: Physician Assistant; Emergency Provider Emergency Medicine Emergency Medical Services
DX: J45.901 Unspecified asthma with (acute) exacerbation (principal); R09.02 Hypoxemia; Z72.0 Tobacco use; Z79.899 Other long term (current) drug therapy
CPT/HCPCS: 36415; 71045; 80053; 83735; 84132; 84484; 85025; 87637; 94640; 96365; 96366; 96367; 96375; 99285; J2919; J3475; J3480

== ENCOUNTER → 2025-06-24 08:44 | Outpatient (BNV) | payer OTHER, SELFPAY | PROVIDERS: Emergency Provider Emergency Medicine Emergency Medical Services; Visit Provider Radiology Diagnostic Radiology | DX: R06.02 Shortness of breath (principal) | CPT/HCPCS: 71045 ==